=== PATIENT | female | born 1960 | race Caucasian/White ===

== ENCOUNTER 2017-04-27 06:46 | Inpatient (IN) | payer OTHER ==
[2017-04-27] VITALS (20 sets, daily range): BP systolic 124–172; BP diastolic 57–100; PULSE 62–97; RESP 18–20; TEMP 97.1–98.6; O2SAT 18–100
[~2017-04-27] VITALS: Ht 175.3 cm; Wt 59.5 kg
[~2017-04-27 06:46] MED LIST: LISI-360 PO
[2017-04-27] MEDS ORDERED: NITROGLYCERIN 0.4 MG SL 25 TABS/BTL SL STA (06:55)
[2017-04-27] MEDS ORDERED: HEPARIN SODIUM - IV 10,000 UNITS/10 ML VIAL IV STA (06:55)
[2017-04-27] MEDS ORDERED: ASPIRIN 81 MG CHEW TAB PO STA (06:55)
[2017-04-27] MEDS ORDERED: SODIUM CHLOR 0.9% 1000 ML INJ 1,000 ML IV ONE (06:55)
[2017-04-27] MEDS ORDERED: OXYC30TA PO (06:56)
[2017-04-27] MEDS ORDERED: HEPARIN-NS/PF INJ 1,000 ML ONE (06:58)
[2017-04-27] MEDS ORDERED: SODIUM CHLORIDE 0.9% FLUSH 10 ML FLUSH IVF PRN (07:00)
[2017-04-27] MEDS ORDERED: NITROGLYCERIN-D5W 50 MG/250 ML 250 ML IV PRN (07:00)
[2017-04-27 07:11] LABS: I-STAT SODIUM 143 MMOL/L (138-146)
[2017-04-27 07:12] LABS: I-STAT POTASSIUM 3.3 MMOL/L (3.5-4.9)
[2017-04-27 07:13] LABS: BASOPHIL # 0.1 TH/MM3 (0-0.2); BASOPHIL % 1.2 % (0.0-2.0); EOSINOPHIL # 0.5 TH/MM3 (0-0.4); EOSINOPHIL % 8.2 % (0.0-4.0); HEMATOCRIT 39.3 % (35.0-46.0); HEMO FLAGS DIFF FINAL; LYMPH % 34.7 % (9.0-44.0); LYMPHOCYTE # 2.3 TH/MM3 (1.0-4.8); MEAN CELL VOLUME 92.2 FL (80.0-100.0); MEAN CORPUSCULAR HEMOGLOBIN 31.9 PG (27.0-34.0); MEAN CORPUSCULAR HGB CONC 34.6 % (32.0-36.0); MONO % 10.2 % (0.0-8.0); NEUT % 45.7 % (16.0-70.0); PLATELET COUNT 166 TH/MM3 (150-450); RED BLOOD COUNT 4.26 MIL/MM3 (4.00-5.30); RED CELL DISTRIBUTION WIDTH 14.6 % (11.6-17.2); WHITE BLOOD COUNT 6.6 TH/MM3 (4.0-11.0)
[2017-04-27] MEDS ORDERED: HEPARIN-NS/PF INJ 500 ML ONE (07:20)
[2017-04-27] MEDS ORDERED: MIDAZOLAM HCL 2 MG/2 ML VIAL ONE (07:21)
[2017-04-27] MEDS ORDERED: HEPARIN SODIUM - IV 10,000 UNITS/10 ML VIAL ONE (07:23)
--- NOTE | 2017-04-27 07:23 | PD ---
HPI Chief Complaint: Chest Pain Time Seen by Provider: 06:54 Travel History International Travel<30 days: No Contact w/Intl Traveler<30days: No Traveled to known affect area: No History of Present Illness HPI The patient is 57 years old and arrives with retrosternal chest pain which she states is severe. It woke her up from sleep about 30 minutes prior to ER arrival. EMS on scene obtained an EKG revealing ST elevations in the inferior leads with depressions in V2 and V3. Patient received nitroglycerin en route and states that her pain is unchanged. EMS reports diaphoresis. The patient has a history of hypertension and smoking. She reports a family history of coronary artery disease on her father's side with an ID in his 60s. Pain radiates to the back midsternal distribution. No similar prior chest pain events reported. No personal history of coronary artery disease. PFSH Past Medical History Hypertension: Yes ?: Not : 2 Para: 2 Past Surgical History Surgical History: No Previous Surgery Social History Alcohol Use: Yes (rarely) Tobacco Use: Yes (1 /2) Substance Use: No Allergies-Medications (Allergen,Severity, Reaction): Coded Allergies: No Known Allergies (Unverified , 04/27/17) Reported Meds & Prescriptions Reported Meds & Active Scripts Active Reported Oxycodone (Oxycodone HCl) 30 Mg Tab 30 Mg PO Q8H PRN Review of Systems Except as stated in HPI: all other systems reviewed are Neg General / Constitutional: No: Fever Cardiovascular: Positive: Chest Pain or Discomfort, Diaphoresis, No: Syncope Respiratory: Positive: Shortness of Breath Physical Exam Narrative GENERAL: 57-year-old female well-nourished well-developed, moderate distress SKIN: Warm and dry.. Minimal diaphoresis HEAD: Atraumatic. Normocephalic. EYES: Pupils equal and round. No scleral icterus. No injection or drainage. ENT: No nasal bleeding or discharge. Mucous membranes pink and moist. NECK: Trachea midline. No JVD. CARDIOVASCULAR: Regular rate and rhythm. RESPIRATORY: Minimal dyspnea. Breath sounds present bilaterally. GASTROINTESTINAL: Abdomen soft, non-tender, nondistended. Hepatic and splenic margins not palpable. MUSCULOSKELETAL: Extremities without clubbing, cyanosis, or edema. No obvious deformities. NEUROLOGICAL: Awake and alert. No obvious cranial nerve deficits. Motor grossly within normal limits. Five out of 5 muscle strength in the arms and legs. Normal speech. PSYCHIATRIC: Appropriate mood and affect; insight and judgment normal. Data Data Last Documented VS Vital Signs Date Time Temp Pulse Resp B/P (MAP) Pulse Ox O2 Delivery O2 Flow Rate FiO2 04/27/17 06:58 99 Nasal Cannula 2.00 04/27/17 06:56 97.1 65 20 133/89 (104) Vital signs reviewed Orders Orders Troponin I (04/27/17 06:55) Ckmb (Isoenzyme) Profile (04/27/17 06:55) Complete Blood Count With Diff (04/27/17 06:55) I-Stat Profile (04/27/17 06:55) I-Stat Creatinine (04/27/17 06:55) Calcium (04/27/17 06:55) Magnesium (Mg) (04/27/17 06:55) Prothrombin Time / Inr (Pt) (04/27/17 06:55) Act Partial Throm Time (Ptt) (04/27/17 06:55) B-Type Natriuretic Peptide (04/27/17 06:55) Chest, Single Ap (04/27/17 06:55) Electrocardiogram (04/27/17 06:55) Oxygen Administration (04/27/17 06:55) Iv Access Insert/Monitor (04/27/17 06:55) Oximetry (04/27/17 06:55) Sodium Chlor 0.9% 1000 Ml Inj (Ns 1000 M (04/27/17 06:55) Sodium Chloride 0.9% Flush (Ns Flush) (04/27/17 07:00) Aspirin Chew (Aspirin Chew) (04/27/17 06:55) Nitroglycerin Sl (Nitrostat Sl) (04/27/17 06:55) Nitroglycerin-D5w 50 Mg/250 Ml (Nitrogly (04/27/17 07:00) Heparin Inj (Heparin Inj) (04/27/17 06:55) Heparin-Ns/Pf Inj (Heparin-Ns/Pf Inj) (04/27/17 06:58) Cardiac Catheterization (04/27/17 ) Heparin-Ns/Pf Inj (Heparin-Ns/Pf Inj) (04/27/17 07:20) Midazolam Inj (Versed Inj) (04/27/17 07:21) Fentanyl Inj (Fentanyl Inj) (04/27/17 07:21) Heparin Inj (Heparin Inj) (04/27/17 07:23) Morphine Inj (Morphine Inj) (04/27/17 07:25) Bivalirudin Inj (Angiomax Inj) (04/27/17 07:26) Water Sterile For Injection (Sterile Javier (04/27/17 07:26) Nitroglycerin-D5w 50 Mg/250 Ml (Nitrogly (04/27/17 07:29) CKMB (04/27/17 06:57) CKMB% (04/27/17 06:57) Labs Laboratory Tests Test 04/27/17 06:57 White Blood Count 6.6 TH/MM3 Red Blood Count 4.26 MIL/MM3 Hemoglobin 13.6 GM/DL Bedside Hemoglobin 12.9 G/DL Hematocrit 39.3 % Bedside Hematocrit 38.0 % Mean Corpuscular Volume 92.2 FL Mean Corpuscular Hemoglobin 31.9 PG Mean Corpuscular Hemoglobin Concent 34.6 % Red Cell Distribution Width 14.6 % Platelet Count 166 TH/MM3 Mean Platelet Volume 8.9 FL Neutrophils (%) (Auto) 45.7 % Lymphocytes (%) (Auto) 34.7 % Monocytes (%) (Auto) 10.2 % Eosinophils (%) (Auto) 8.2 % Basophils (%) (Auto) 1.2 % Neutrophils # (Auto) 3.0 TH/MM3 Lymphocytes # (Auto) 2.3 TH/MM3 Monocytes # (Auto) 0.7 TH/MM3 Eosinophils # (Auto) 0.5 TH/MM3 Basophils # (Auto) 0.1 TH/MM3 CBC Comment DIFF FINAL Differential Comment Prothrombin Time 11.3 SEC Prothromb Time International Ratio 1.0 RATIO Activated Partial Thromboplast Time 24.6 SEC Bedside Sodium 143 MMOL/L Bedside Potassium 3.3 MMOL/L Bedside Chloride 106 MMOL/L Bedside Blood Urea Nitrogen 12 MG/DL Bedside Creatinine 0.7 MG/DL Bedside Glucose 124 MG/DL Calcium Level 8.4 MG/DL Magnesium Level 2.2 MG/DL Total Creatine Kinase 111 U/L Troponin I LESS THAN 0.02 NG/ML MDM Medical Decision Making Medical Screen Exam Complete: Yes Emergency Medical Condition: Yes Differential Diagnosis NSTEMI, unstable angina, coronary vasospasm, PE, PTX, aortic dissection, pericarditis, myocarditis, endocarditis, PNA, esophageal disease, aneurysm, musculoskeletal etiologies, anxiety, cocaine/sympathomimetic abuse Narrative Course EKG shows ST elevations and II, III and aVF; ST depression in V2-V3; rate 68, sinus; concerning for STEMI CBC & BMP Diagram 04/27/17 06:57 Point of care hemoglobin 12.9 Patient appears to have occlusive coronary disease. STEMI alert activated. Discussed with Dr. Ramirez at [id number]. Heparin started in the ER. Patient will go for stat coronary catheterization. Critical Care Narrative Aggregate critical care time was 20 minutes. Time to perform other separately billable procedures was not included in the critical care time. My time did not include minutes spent treating any other patients simultaneously or on activities that did not directly contribute to the patient's treatment. The services I provided to this patient were to treat and/or prevent clinically significant deterioration that could result in: Cardiopulmonary arrest, permanent disability I provided critical care services requiring my management, as noted below: Chart data review, documentation time, medication orders and management, vital sign assessments/reviewing monitor data, ordering and reviewing lab tests, ordering and interpreting/reviewing x-rays and diagnostic studies, care of the patient and discussion of the patient with the admitting physicians. Diagnosis Primary Impression: STEMI (ST elevation myocardial infarction) Qualified Codes: I21.3 - ST elevation (STEMI) myocardial infarction of unspecified site Admitting Information Admitting Physician Requests: Rajesh Rutledge MD Apr 27, 2017 07:23
[2017-04-27 07:25] LABS: APTT (PATIENT) 24.6 SEC (24.3-30.1); PROTHROMBIN TIME - PATIENT 11.3 SEC (9.8-11.6)
[2017-04-27] MEDS ORDERED: MORPHINE SULFATE 8 MG/ML INJ ONE (07:25)
[2017-04-27] MEDS ORDERED: STERILE WATER FOR INJECTION 10 ML VIAL ONE (07:26)
[2017-04-27] MEDS ORDERED: BIVALIRUDIN 250 MG VIAL ONE (07:26)
[2017-04-27 07:27] LABS: MAGNESIUM 2.2 MG/DL (1.5-2.5)
--- NOTE | 2017-04-27 07:28 | RADRPT ---
EXAM DATE/TIME: 04/27/2017 07:05 [facility] COMPARISON: No previous studies available for comparison. INDICATIONS : Mid sternal to left arm chest pains. MEDICAL HISTORY : None. SURGICAL HISTORY : None. ENCOUNTER: Initial ACUITY: 2 days PAIN SCORE: 10/10 LOCATION: Left chest FINDINGS: A single view of the chest demonstrates the lungs to be symmetrically aerated without evidence of mas s, infiltrate or effusion. The cardiomediastinal contours are unremarkable. Osseous structures are intact. CONCLUSION: No acute disease. Stephon Hansen MD FACR on April 27, 2017 at 7:26 Board Certified Radiologist. This report was verified electronically.
[2017-04-27] MEDS ORDERED: NITROGLYCERIN-D5W 50 MG/250 ML 250 ML ONE (07:29)
[2017-04-27 07:30] LABS: CREATINE KINASE 111 U/L (26-192)
[2017-04-27 07:43] LABS: CKMB 1.6 NG/ML (0.5-3.6)
[2017-04-27] MEDS ORDERED: TICAGRELOR 90 MG TAB PO ONE (08:16)
--- NOTE | 2017-04-27 08:31 | CATHPROC ---
365Scores HIS Report Study Information Study Number Admission Scheduled Start Study Start [id number] Apr 27 2017 6:46AM 04/27/2017 Apr 27 2017 7:03AM [place] [facility] Cardiac Catheterization Admit Source Facility Department Emergency department [facility] - [employer] Physician and Clinical Staff Initial Elliot Davis Skein Mercerizing Machine Operator Rubina Nichole,RN Skein Mercerizing Machine Operatorjohan Crews RN, Adithya Melendrez cathlab, cathlab Recorder Awais Kay RCIS(BS) Scrub Rubina Leonard,RT(R) Procedures Performed Procedure Location (Site) Vessel Name Angiogram LV LV Ventricle Coronary Angiograms LCA Left Coronary Coronary Angiograms RCA Right Coronary Drug Eluting Inflatio OM2 Prox CIRC IVUS OM2 Prox CIRC L Heart Cath PTCA OM2 Prox CIRC Wire insertion Fem Art (right) Femoral Art Equipment Time Hooking Machine Operator Description Size Mfg Part Number Used/Scraped [id number] 07:43 [employer] WIRE, ASAHI PROWATER 180CM 180CM Used *[id number] WIRE, BALANCE MIDDLEWEIGHT [id number] 07:32 [employer] 190CM Used 190CM *[id number] TRANSDUCER, TRUWAVE [id number] 07:06 MOCTEZUMA MARTE * Used W/STOCKCOCK *[id number] 07:47 [employer] BALLOON, 2.5 15MM EMERGE MR 2.5 15MM Used *[id number] 07:40 [employer] WIRE, CHOICE PT 182CM 182CM Used *[id number] *[id number] *[id number] PIGTAIL ANG. 145 INFINITI [id number] CATHETER *[id number] *[id number] 08:14 DAIG/ST. [employer] MEDICAL ANGIOSEAL, FR6 VIP FR 6 Used *[id number] 07:06 MEDLINE INDUSTRIES PACK, CCL CUSTOM * Used *[id number] 07:06 MEDLINE PACER PEN, SKIN DUAL W/ RULER * Used *[id number] BALLOON, 3.5 X 12MM NC [id number] 07:56 MEDTRONIC 12MM Used EUPHORA *[id number] STENT, 3.0 18 RESOLUTE [id number] 07:50 MEDTRONIC 3.0 18 Used INTEGRITY RX *[id number] 07:48 [employer] MEDICAL 30 DEBBY INDEFLATOR Used *[id number] 07:06 [employer] MEDICAL SHEATH, FR6.5 PRELUDE 11CM FR 6.5 038ACT Used *[id number] 07:06 [employer] MEDICAL WIRE, 3MMJ .035 180CM 180CM Used *[id number] 07:06 NAMIC MANIFOLD, 4 PORT * Used *[id number] 07:06 NYCOMED OMNIPAQUE, 350 MG, 100ML 100ML [id number] Used 08:13 NYCOMED OMNIPAQUE, 350 MG, 50ML 50ML [id number] Used [id number] 07:06 [facility] BLANKET,WARM AIR CCL * Used *[id number] CATHETER, [employer] [place] [id number] 08:00 [place] Used IMAGING *[id number] Equipment Model, Serial, Lot Number and Expiration Data Description Model Number Serial Number Lot Number Expiration Date BALLOON, 2.5 15MM EMERGE MR [id number] 10-07-2019 CATHETER, [employer] [place] [id number] 06-19-2018 IMAGING STENT, 3.0 18 RESOLUTE [id number] 11-27-2018 INTEGRITY RX WIRE, CHOICE PT 182CM [id number] 10-30-2018 History: Allergies Allergy Reaction No Known Allergies History: Risk Factors Family History of Hypertension Dyslipidemia Previous ND Previous Heart Failure Premature CAD Yes Yes No No No Prior Valve Prior PCI Prior CABG Surgery No No No Cerebrovascular Peripheral Artery Chronic Lung On Dialysis Diabetes Disease Disease Disease No No No No No History: Symptoms/Diagnosis Selection Items Chest pain History: Stress Tests Stress or Imaging Studies Performed No History: Other Disease Selection Items HTN History: Other Current Smoker Packs a Day Years Used Pack Years Yes 1 30 30 Labs Hgb (g/dl) 11.60-17.00 Not Drawn Creatinine (mg/dl) 0.50-1.30 0.7 K (meq/l) 3.50-5.10 3.3 CPK-MB (ng/ML) 0.50-3.60 Not Drawn Medication Medication Total Dose (Bolus/Oral) Medication Total Dosage/Unit 1% XYLOCAINE 20 mL ANGIOMAX BOLUS 9 mL BRILLINTA 180 mg MORPHINE 8 mg NITROGLYCERIN S/L 350 mcg Medications (Bolus/Oral) Medication Time Given Dosage/Unit Administered By Reason 1% XYLOCAINE 04/27/2017 7:25:57 AM 20 mL Elliot Ramirez 20 mL 1% XYLOCAINE given in lab by Elliot Ramirez in Right Groin via Subcutaneous. Ordered by Elliot Ramirez. MORPHINE 04/27/2017 7:27:51 AM 5 mg Rubina Nichole 5 mg MORPHINE given in lab by Rubina Nichole RN in Left Forearm via Peripheral IV. Ordered by Elliot Ramirez. ANGIOMAX BOLUS 04/27/2017 7:29:42 AM 9 mL Rubina Nichole 9 mL ANGIOMAX BOLUS given in lab by Rubina Nichole RN in Left Antecubital via Peripheral IV. Ordered by Elliot Ramirez. MORPHINE 04/27/2017 7:50:44 AM 3 mg Adithya Crews RN 3 mg MORPHINE given in lab by Adithya Crews RN in Left Forearm via Peripheral IV. Ordered by Christin Ramirez. NITROGLYCERIN S/L 04/27/2017 8:02:32 AM 200 mcg Elliot Ramirez 200 mcg NITROGLYCERIN S/L given in lab by Elliot Ramirez via Intra-arterial. Ordered by Elliot Ramirez. NITROGLYCERIN S/L 04/27/2017 8:08:33 AM 150 mcg Elliot Ramirez 150 mcg NITROGLYCERIN S/L given in lab by Elliot Ramirez via Intra-arterial. Ordered by Elliot Ramirez. BRILLINTA 04/27/2017 8:29:15 AM 180 mg Rubina Nichole 180 mg BRILLINTA given in lab by Rubina Nichole, ERROL in Per mouth via Oral. Ordered by Elliot Ramirez. Medication (Drip) Medication Time Given Dosage/Unit Concentration/Unit Diluent (ml) Solution ANGIOMAX DRIP 04/27/2017 7:30:40 AM 1.75 mg/kg/hr 250 mg 50 NaCl .9 1.75 mg/kg/hr ANGIOMAX DRIP given in lab by Rubina Nichole, ERROL in Left Antecubital via Peripheral IV. Pump/Drip Flow = 21.49 ml/hr using NaCl .9 with a concentration of 250 mg in 50 ml. Ordered by Elliot Ramirez. IV Solutions 04/27/2017 7:16:53 AM 0 mL (IV) 500 NaCl .9 Patient arrived on IV Solutions in Left Forearm via Peripheral IV. Pump/Drip Flow = 20 ml/hr using Na Cl .9. NITROGLYCERIN DRIP 04/27/2017 7:33:30 AM 5 mcg/min 50 mg 250 D5W 5 mcg/min NITROGLYCERIN DRIP given in lab by Adithya Crews RN in Left Antecubital via Peripheral IV. P ump/Drip Flow = 1.5 ml/hr using D5W with a concentration of 50 mg in 250 ml. Ordered by Elliot Ramirez. NITROGLYCERIN DRIP 04/27/2017 7:40:45 AM 10 mcg/min 50 mg 250 D5W 10 mcg/min NITROGLYCERIN DRIP given in lab by Adithya Crews RN in Left Antecubital via Peripheral IV. Pump/Drip Flow = 3 ml/hr using D5W with a concentration of 50 mg in 250 ml. Ordered by Elliot Ramirez. NITROGLYCERIN DRIP 04/27/2017 7:47:12 AM 15 mcg/min 50 mg 250 D5W 15 mcg/min NITROGLYCERIN DRIP given in lab by Adithya Crews RN in Left Antecubital via Peripheral IV. Pump/Drip Flow = 4.5 ml/hr using D5W with a concentration of 50 mg in 250 ml. Ordered by Elliot Ramirez. NITROGLYCERIN DRIP 04/27/2017 7:50:17 AM 0 mcg/min 50 mg 250 D5W 0 mcg/min NITROGLYCERIN DRIP given in lab by Adithya Crews RN in Left Forearm via Peripheral IV. Pump/ Drip Flow = 0 ml/hr using D5W with a concentration of 50 mg in 250 ml. Ordered by Elliot Ramirez. Initial Case Assessment Cardiovascular HR Rhythm NIBP Chest Pain 76 stmei 170/111 0 Edema Present Skin color Skin None Normal Warm Dry Circulatory - Right Pulses Dorsalis Pedis Femoral 2 2 Scale (0,1,2,3,4,d) Circulatory - Left Pulses Dorsalis Pedis Femoral 2 2 Scale (0,1,2,3,4,d) Neurological State Oriented to time-place- Alert Moves all extremities person Respiration - General Respiration Rate SpO2 (%) (B/min) 15 98 Final Case Assessment Cardiovascular HR Rhythm NIBP Chest Pain 86 nsr 135/95 0 Edema Present Skin color Skin None Normal Warm Dry Circulatory - Right Pulses Dorsalis Pedis Femoral 2 2 Scale (0,1,2,3,4,d) Circulatory - Left Pulses Dorsalis Pedis Femoral 2 2 Scale (0,1,2,3,4,d) Neurological State Oriented to time-place- Alert Moves all extremities person Respiration - General Respiration Rate SpO2 (%) (B/min) 15 98 Chronological Log Time Study Chronological Log 7:16:15 MD arrived. 7:16:41 Patient arrived via Bed. 7:16:42 Patient Name, D.O.B, / Armband Verified By R.N. 7:16:42 Consent signed by the physician and the patient and verified by the Autom[employer] staff. 7:16:43 Pre-op and post- op instructions given; patient acknowledges understanding of instructions. 7:16:43 Verbal Stimulation=2 Physical Stimulation=2 Airway=2 Respiration=2 TOTAL=8. (0=absent, 1=li mited, 2=present) 7:16:46 Presedation assessment performed by [employer] RN. 7:16:47 Immediate Presedation assesment performed by physician. 7:16:47 Patient has been NPO for More than 6Hrs. 7:16:48 Skin Breakdown- none per patient 7:16:49 Patient Warmer Placed on the Table. 7:16:50 Disposable Defibrillator Pads Placed On Patient. 7:16:51 Nicholas Prominences Protected 7:16:52 A # 20 IV was noted in the Forearm (left). Grade = 0 7:16:52 A # 20 IV was noted in the Forearm (right). Grade = 0 7:16:53 Patient arrived on IV Solutions in Left Forearm via Peripheral IV. Pump/Drip Flow = 20 ml/h r using NaCl .9. 7:16:55 History and physical on the chart or being dictated. 7:19:00 Bilateral groins prepped with 2% chlorhexidine, and with a 3 min. waiting time. Vitals capture started with the following parameters, Patient=Adult, Interval=5 min, Initial Pre jtopg=528 mmHg, 7:20:42 Deflation Rate=5 mmHg, Cuff placed on Right Arm 7:21:21 HR=74 bpm, MCXM=270/111 mmhg, SpO2=98.0 %, Resp=15 B/min, Pain=8, Nik=10, Wisdom=2 7:22:30 Contrast Scanned 7:22:31 Immediate Presedation assesment performed by physician. Assessment: Initial Case, HR=76 BPM, Rhythm=stmei, FBSJ=058/111 mmhg, Chest Pain=0, Edema=None, Color=Normal, Skin = Warm, Dry Right Pulses: Demetrius Ped=2, Femoral=2 7:22:38 Left Pulses: Demetrius Ped=2, Femoral=2 Neurological: State=Alert, Ox3, VINSON Respiration: Resp=15 B/min, SpO2=98 % 7:23:54 Reference ECG taken 7:24:41 Pressure channel 1 zeroed. 7:24:46 Immediate Presedation assesment performed by physician. Time Out. Correct patient, correct procedure,correct physician, ,power injector not loaded with contrast with surgical 7:25:21 team present. Time Out Concurred by , individual staff in procedure 7::28 Case Start 7::29 Verbal Stimulation=2 Physical Stimulation=2 Airway=2 Respiration=2 TOTAL=8. (0=absent, 1=hilton ited, 2=present) 7:25:57 20 mL 1% XYLOCAINE given in lab by Elliot Ramirez in Right Groin via Subcutaneous. Ordered by Elliot Ramirez. 7:26:22 HR=79 bpm, EISC=266/106 mmhg, SpO2=98.0 %, Resp=25 B/min, Pain=8, Nik=10, Wisdom=2 7:26:54 Access site was Right Femoral Artery. 7:27:03 A WIRE, 3MMJ .035 180CM 180CM was inserted via Fem Art (right). 7:27:10 A SHEATH, FR6.5 PRELUDE 11CM FR 6.5 was advanced into the Fem Art (right) using the Percutan eous technique. A JL 4.0 INFINITI CATHETER FR 6 was advanced over a wire. OMNIPAQUE, 350 MG, 100ML 100ML was use d for 7:27:25 injections. 7:27:51 5 mg MORPHINE given in lab by Rubina Nichole, ERROL in Left Forearm via Peripheral IV. Ordered by Elliot Ramirez. Recorded Pressure: Ao, HR=82, Condition=Condition 1 7:29:05 (Aorta) Ao 181/105/137 7:29:13 The LCA was injected and visualized at various angles. OMNIPAQUE, 350 MG, 100ML 100ML used. 9 mL ANGIOMAX BOLUS given in lab by Rubina Nichole, ERROL in Left Antecubital via Peripheral IV. Or dered by James 7:29:42 Elliot. After removing the current catheter a 3DRC INFINITI CATHETER FR 6 was advanced over a WIRE, 3MMJ .035 180CM 7:30:33 180CM. 1.75 mg/kg/hr ANGIOMAX DRIP given in lab by Rubina Nichole RN in Left Antecubital via Periphera l IV. Pump/Drip 7:30:40 Flow = 21.49 ml/hr using NaCl .9 with a concentration of 250 mg in 50 ml. Ordered by Keanu Ramirez. 7:31:23 HR=83 bpm, QYLR=122/121 mmhg, SpO2=97.0 %, Resp=20 B/min, Pain=8, Nik=10, Wisdom=2 7:31:28 The RCA was injected and visualized at various angles. OMNIPAQUE, 350 MG, 100ML 100ML used. After removing the current catheter a XB 3.5 GUIDE CATHETER FR 6 was advanced over a WIRE, 3MMJ .035 180CM 7:32:21 180CM. 5 mcg/min NITROGLYCERIN DRIP given in lab by Adithya Crews RN in Left Antecubital via Peripheral IV. Pump/Drip Flow 7:33:30 = 1.5 ml/hr using D5W with a concentration of 50 mg in 250 ml. Ordered by Elliot Ramirez. 7:33:58 A WIRE, BALANCE MIDDLEWEIGHT 190CM 190CM was inserted via Fem Art (right). 7:36:22 HR=85 bpm, JWYB=356/115 mmhg, SpO2=98.0 %, Resp=15 B/min, Pain=8, Nik=10, Wisdom=2 7:36:47 Wire removed. Reshaped. 7:38:59 A WIRE, BALANCE MIDDLEWEIGHT 190CM 190CM was inserted via Fem Art (right). 7:40:14 Wire removed 7:40:40 A WIRE, CHOICE PT 182CM 182CM was inserted via Fem Art (right). 10 mcg/min NITROGLYCERIN DRIP given in lab by Adithya Crews RN in Left Antecubital via Peripheral IV. Pump/Drip Flow 7:40:45 = 3 ml/hr using D5W with a concentration of 50 mg in 250 ml. Ordered by Elliot Ramirez. 7:41:23 HR=82 bpm, OUPW=437/106 mmhg, SpO2=96.0 %, Resp=15 B/min, Pain=8, Nik=10, Wisdom=2 7:43:52 A WIRE, ASAHI PROWATER 180CM 180CM was inserted via Fem Art (right). 7:45:50 Interventional wire has crossed the lesion 7:46:22 HR=85 bpm, SUDZ=209/112 mmhg, SpO2=96.0 %, Resp=14 B/min, Pain=8, Nik=10, Wisdom=2 A BALLOON, 2.5 15MM EMERGE MR 2.5 15MM was inserted over WIRE, ASAHI PROWATER 180CM 180CM via th e OM2 7:47:04 Prox. 15 mcg/min NITROGLYCERIN DRIP given in lab by Adithya Crews RN in Left Antecubital via Peripheral IV. Pump/Drip Flow 7:47:12 = 4.5 ml/hr using D5W with a concentration of 50 mg in 250 ml. Ordered by Elliot Ramirez. 7:47:53 Choice PT Wire removed A BALLOON, 2.5 15MM EMERGE MR 2.5 15MM over a WIRE, ASAHI PROWATER 180CM 180CM in the OM2 Prox w as 7:48:06 inflated using a 30 DEBBY INDEFLATOR at 6 debby for 20 sec. 7:49:40 Balloon Removed. 0 mcg/min NITROGLYCERIN DRIP given in lab by Adithya Crews RN in Left Forearm via Peripheral IV. Pump/Drip Flow = 0 7:50:17 ml/hr using D5W with a concentration of 50 mg in 250 ml. Ordered by Elliot Ramirez. 7:50:44 3 mg MORPHINE given in lab by Adithya Crews RN in Left Forearm via Peripheral IV. Ordered by Elliot Ramirez. A STENT, 3.0 18 RESOLUTE INTEGRITY RX 3.0 18 was advanced through a XB 3.5 GUIDE CATHETER FR 6 o cruz a 7:50:59 WIRE, ASAHI PROWATER 180CM 180CM. 7:51:23 HR=92 bpm, KSAN=194/91 mmhg, SpO2=95.0 %, Resp=15 B/min, Pain=6, Nik=10, Wisdom=2 A STENT, 3.0 18 RESOLUTE INTEGRITY RX 3.0 18 was deployed using a 30 DEBBY INDEFLATOR at 12 atmosp heres for 7:51:36 34 seconds in the OM2 Prox. 7:52:28 Delivery device removed A BALLOON, 3.5 X 12MM NC EUPHORA 12MM was inserted over WIRE, ASAHI PROWATER 180CM 180CM via the OM2 7:55:02 Prox. 7:56:14 HR=85 bpm, QVEW=615/104 mmhg, SpO2=92.0 %, Resp=16 B/min, Pain=6, Nik=10, Wisdom=2 A BALLOON, 3.5 X 12MM NC EUPHORA 12MM over a WIRE, ASAHI PROWATER 180CM 180CM in the OM2 Prox wa s 7:56:23 inflated using a 30 DEBBY INDEFLATOR at 14 debby for 17 sec. A BALLOON, 3.5 X 12MM NC EUPHORA 12MM over a WIRE, ASAHI PROWATER 180CM 180CM in the OM2 Prox wa s 7:56:55 inflated using a 30 DEBBY INDEFLATOR at 14 debby for 13 sec. 7:57:13 Balloon Removed. 8:00:52 IVUS machine turned on. 8:01:19 HR=82 bpm, ZWTL=910/95 mmhg, SpO2=93.0 %, Resp=27 B/min, Pain=6, Nik=10, Wisdom=2 8:02:32 200 mcg NITROGLYCERIN S/L given in lab by Elliot Ramirez via Intra-arterial. Ordered by Elliot Smith. 8:03:15 An CATHETER, [employer] [place] IMAGING was advanced through the lesion. Images saved on to IVUS hard drive 8:03:44 IVUS in progress using CATHETER, [employer] [place] IMAGING 8:05:39 IVUS catheter removed 8:06:22 HR=71 bpm, IASY=364/78 mmhg, SpO2=92.0 %, Resp=26 B/min, Pain=6, Nik=10, Wisdom=2 A BALLOON, 3.5 X 12MM NC EUPHORA 12MM was inserted over WIRE, ASAHI PROWATER 180CM 180CM via the OM2 8:06:48 Prox. A BALLOON, 3.5 X 12MM NC EUPHORA 12MM over a WIRE, ASAHI PROWATER 180CM 180CM in the OM2 Prox wa s 8:07:43 inflated using a 30 DEBBY INDEFLATOR at 20 debby for 19 sec. 8:08:33 150 mcg NITROGLYCERIN S/L given in lab by Elliot Ramirez via Intra-arterial. Ordered by Elliot Smith. 8:09:59 Balloon Removed. 8:10:10 Wire removed 8:11:10 A PIGTAIL ANG. 145 INFINITI CATHETER FR 6 was advanced over a wire. contrast was used for in jections. 8:11:19 HR=86 bpm, MVDR=558/77 mmhg, SpO2=95.0 %, Resp=15 B/min, Pain=4, Nik=10, Wisdom=2 Recorded Pressure: LV, HR=73, Condition=Condition 1 8:12:25 (Left Ventricle) LV 132/10/18 8:12:40 The LV was injected at 10 cc/sec for a total of 30. OMNIPAQUE, 350 MG, 50ML 50ML used. Recorded Pressure: LV, Ao, HR=84, Condition=Condition 1 8:13:37 (Left Ventricle) LV 140/14/23, (Aorta) Ao 132/78/103 8:13:54 Catheter was removed 8:14:00 An injection in the Fem Art (right) was made through the SHEATH, FR6.5 PRELUDE 11CM FR 6.5 . 8:14:57 ANGIOSEAL, FR6 VIP FR 6 placement in the Fem Art (right) 8:15:54 Case End Assessment: Final Case, HR=86 BPM, Rhythm=nsr, UNVY=468/95 mmhg, Chest Pain=0, Edema=None, Col or=Normal, Skin = Warm, Dry Right Pulses: Demetrius Ped=2, Femoral=2 8:15:59 Left Pulses: Demetrius Ped=2, Femoral=2 Neurological: State=Alert, Ox3, VINSON Respiration: Resp=15 B/min, SpO2=98 % 8:16:17 Catheter(s) removed without difficulty 8:16:20 Sterile dressing applied to site 8:16:21 No case complications noted. 8:16:21 Cine recording checked. 8:16:23 Bedside Report will be given. 8:16:23 Implantable Device card placed in patient's chart. 8:16:27 Contrast Scanned 8:16:27 Verbal Stimulation=2 Physical Stimulation=2 Airway=2 Respiration=2 TOTAL=8. (0=absent, 1=l imited, 2=present) 8:16:37 A Left Heart Cath was performed. 8:16:51 HR=85 bpm, HRDY=283/95 mmhg, SpO2=97.0 %, Resp=16 B/min, Pain=4, Nik=10, Wisdom=2 8:21:19 HR=83 bpm, IQGH=658/91 mmhg, SpO2=99.0 %, Resp=17 B/min, Pain=3 8:23:04 Patient moved to stretcher 8:23:08 Vitals capture stopped. 8:29:15 180 mg BRILLINTA given in lab by Rubina Nichole, RN in Per mouth via Oral. Ordered by Elliot Gold. End Study - Contrast Media Used In Study Contrast Total Opened (mL) Total Used (mL) Total Wasted (mL) Omnipaque 200 200 0 End Study - Maximum Contrast Load Max Contrast Load (mL) 438.3 End Study - Radiation Exposure Fluoro Time (minutes) 16.6 End Study - Patient Disposition Complications Transferred To Interventional Outcome No Telemetry Bed successful
[2017-04-27] MEDS ORDERED: BIVALIRUDIN INJ 250 MG in SODIUM CHLORIDE 0.9% INJ 50 ML IV SCH (08:34)
[2017-04-27] MEDS: SODIUM CHLOR 0.9% 1000 ML INJ 1,000 ML IV SCH ×2 (08:34→18:34)
[2017-04-27] MEDS ORDERED: ACETAMINOPHEN 325 MG TAB PO PRN (08:45)
[2017-04-27] MEDS ORDERED: MISC INFORMATION XX ONE (08:45)
[2017-04-27] MEDS ORDERED: oxyCODONE/ACETAMINOPHEN 5 MG/325 MG TAB PO PRN (08:45)
[2017-04-27] MEDS ORDERED: POTASSIUM CHLORIDE 20 MEQ CONTROLLED RELEASE TAB PO ONE (08:45)
[2017-04-27] MEDS ORDERED: ONDANSETRON HCL 4 MG/2 ML VIAL IV PUSH PRN (08:45)
[2017-04-27] MEDS ORDERED: BACITRACIN OINT 0.9 GM PKT TOP ONE (08:45)
[2017-04-27] MEDS ORDERED: SODIUM CHLORIDE 0.9% FLUSH 10 ML FLUSH IV FLUSH PRN (08:45)
--- NOTE | 2017-04-27 08:53 | MH ---
cc: JOSE LEROY M.D. DATE OF ADMISSION 04/27/2017 ADMITTING DIAGNOSIS: 1. Acute ST segment elevation myocardial infarction due to occlusion of the major obtuse marginal branch of the circumflex coronary artery. 2. Chronic tobacco abuse 3. History of hypertension CHIEF COMPLAINT 10/10 chest pain HISTORY OF PRESENT ILLNESS This is a 57-year-old woman who called [facility] for a 10/10 chest pain that woke her from sleep 30 minutes prior to ER arrival. She was brought in as a STEMI alert, taken directly to the laboratory assistant. She has a history of hypertension and smoking. She has a family history of coronary artery disease on her father's side with a known TN in his 60's with a pain 10/10 in the midchest radiating to the back. PAST MEDICAL HISTORY Includes, hypertension. PAST SURGICAL HISTORY Negative SOCIAL HISTORY She has two son. She smokes one and a half packs a day, drinks alcohol rarely, denies substance abuse. ALLERGIES None REVIEW OF SYSTEMS Denies any GI bleeding, urinary problems, GI problems, additional review of systems is negative. PHYSICAL EXAMINATION This is a well-developed, well-nourished white female moaning in pain. VITAL SIGNS: Charted. HEENT: Exam unremarkable. NECK: Negative for JVD bruits. CHEST: Clear to auscultation. CARDIAC: S1, S2, S4 regular rate and rhythm. No murmur. ABDOMEN: Soft, nontender. EXTREMITIES: No clubbing, cyanosis or edema. Pulses are intact. EKG shows ST-segment elevation consistent with an acute STEMI. LABORATORY DATA Show a hematocrit 39.3 and platelet count 166,000, white count 6600, potassium 3.3, creatinine is 0.7 and troponin less than 0.02, these are the point of care testing. IMPRESSION Acute ST-segment elevation TN. PLAN Please see laboratory assistant procedure note. The patient has a STEMI of the circumflex artery. We will add teri inhibitors and beta blockers as hemodynamics permit. Anticipated hospital stay is two days. Check lipid values and initiate statin therapy. MD WILLIAM Maynard/MATTHEW 8:32 AM /8:41 AM
[2017-04-27] MEDS ORDERED: ATORVASTATIN 10 MG TAB PO SCH (09:00)
[2017-04-27] MEDS: SODIUM CHLORIDE 0.9% FLUSH 10 ML FLUSH IV FLUSH SCH ×2 (09:00→21:24)
[2017-04-27] MEDS ORDERED: NICOTINE 21 MG/24 HR PATCH T-DERMAL ONE (09:15)
[2017-04-27] MEDS: LISINOPRIL 5 MG TAB PO SCH (09:24)
[2017-04-27] MEDS: ASPIRIN 81 MG CHEW TAB PO SCH (09:25)
[2017-04-27] MEDS: METOPROLOL TARTRATE 25 MG TAB PO SCH ×2 (09:25→21:24)
--- NOTE | 2017-04-27 09:47 | MA ---
cc: JOSE LEROY M.D. DATE 04/27/2017 PROCEDURE PERFORMED Left heart catheterization, left ventriculography, coronary angiography, intravascular ultrasound, balloon angioplasty and stenting of the major obtuse marginal branch of circumflex coronary artery. INDICATIONS FOR THE PROCEDURE This is a 57-year-old woman who came in with an acute STEMI 10/10 pain. DESCRIPTION OF PROCEDURE The patient was brought to the cardiac environmental laboratory technician in a fasting state. The right groin was prepped and draped in a sterile fashion. Using 1% lidocaine for local anesthesia, a 6-1/2 Ethiopian sheath was inserted in the right femoral artery requiring only a single front wall stick. Left coronary angiography was completed using a left four Luis Alberto catheter and a right coronary angiography was completed using a 3DRC catheter. We used an XB 3.5 guiding catheter to engage the left main. Were I to do a repeat, I probably would choose an XB 4 guide. I then tried to wire the circumflex marginal branch. This was difficult because the marginal branch required navigating two opposite 90 degrees bends. I was unsuccessful with a BMW wire. I tried trace floppy unsuccessfully with a Prowater guide and special bands in the wire, was able to get the marginal branch wired and then predilated it with a 2.5 mm balloon. I then stented it with a 3.0 x 18 mm Resolute stent. This was postdilated with a 3.5 x 12 mm NC balloon. I performed intravascular ultrasound and decided to expand the proximal portion of the stent further, so I used the same balloon and went to 20 atmospheres. Angiography demonstrated a good result. The chest pain level was down to 2. There were no complications. Angiography of the right femoral artery was then performed via the sheath followed by an uncomplicated Angio-Seal placement. Hemostasis was achieved. Prior to the groin closure, I performed an LV gram and pulled back with a pigtail catheter. FINDINGS Hemodynamics. Left ventricular pressure was 140/14 with an end-diastolic pressure elevated at 23. Aortic pressure is 132/78 with mean of 103. Left ventriculography. Left ventriculography shows moderate apical hypokinesis. Ejection fraction is 40-45% probably closer to 40%. Coronary angiography. The left main coronary artery tapers distally about 10%. The left anterior descending artery has diffuse proximal and mid disease which is eccentric and may be as much as 40-50% proximally and 20-30% in the mid segment. There is a ramus intermediate branch which has 40-50% smooth ostial and proximal narrowing. The circumflex artery gives off a major obtuse marginal branch which is completely occluded. This is a very large branch which goes all the way to the apex. There is a small distal circumflex vessel. The right coronary artery is dominant and has diffuse 35% proximal and mid disease. RESULTS OF STENTING Following stenting of the major obtuse marginal branch, the total occlusion has been reduced to 0% without evidence of thrombus or dissection. There is about a 20% stenosis distal to where I stented that did not need stenting. There is SONAL-III flow at the end of the procedure. Looking carefully at the stent, it probably does chcf the distal circumflex vessel, but that vessel is very small CONCLUSIONS 1. Mild to moderately impaired LV function. 2. Elevated left ventricular end-diastolic pressure. 3. Three-vessel coronary artery disease which is mild in the right coronary artery, moderate in the LAD and severe in the circumflex vessel occlusion of the obtuse marginal branch. 4. Successful stenting of the obtuse marginal branch using a drug-eluting stent. RECOMMENDATIONS Aspirin and Brilinta and at use [place] inhibitor, beta angélica as hemodynamics permit. Check lipid values and start statin therapy. Anticipated hospital stay is two days. MD WILLIAM Maynard/MATTHEW /8:26 AM /9:28 AM
--- NOTE | 2017-04-27 10:53 | HHI.HP ---
[facility] Unknown Admission Diagnosis STEMI Diagnoses: (1) Tobacco abuse (2) Hypertension Diagnosis: Principal (3) Hyperlipidemia Diagnosis: Secondary (4) STEMI (ST elevation myocardial infarction) Diagnosis: Principal Chief Complaint: Chest pain Travel History International Travel<30 Days: No Contact w/Intl Traveler <30 Da: No Traveled to Known Affected Are: No History of Present Illness Patient is a 57-year-old female. Initially presented with BY EVAC with 10 out of 10 chest pain that woke her from sleep 30 minutes prior to arrival in emergency department. Patient was brought in as STEMI alert. Patient went directly to the [facility] [employer]. Had stents placed to left circumflex drug-eluting She has history of hypertension and tobacco abuse Family history is positive for MIs and coronary artery disease She had pain And 10 the Mid Chest Radiating into Her Back Review of Systems Constitutional: DENIES: Diaphoretic episodes, Fatigue, Fever, Weight gain, Weight loss, Chills, Dizziness Endocrine: DENIES: Abnorml menstrual pattern, Heat/cold intolerance Eyes: DENIES: Blurred vision, Diplopia, Eye inflammation Ears, nose, mouth, throat: DENIES: Tinnitus, Hearing loss, Vertigo, Nasal discharge Respiratory: COMPLAINS OF: Cough, DENIES: Apneas, Snoring, Wheezing, Hemoptysis , Sputum production Cardiovascular: COMPLAINS OF: Chest pain, DENIES: Palpitations, Syncope, Dyspnea on Exertion, PND, Lower Extremity Edema Gastrointestinal: DENIES: Abdominal pain, Black stools, Bloody stools Genitourinary: DENIES: Abnormal vaginal bleeding, Dysmenorrhea Musculoskeletal: DENIES: Joint pain, Muscle aches Integumentary: DENIES: Abnormal pigmentation, Pruritus Hematologic/lymphatic: DENIES: Bruising, Lymphadenopathy Immunologic/allergic: DENIES: Eczema, Urticaria Neurologic: DENIES: Abnormal gait, Headache Psychiatric: DENIES: Anxiety, Confusion Past Family Social History Past Medical History Hypertension tobacco abuse Past Surgical History Denies Reported Medications Reported Meds & Active Scripts Active Reported Oxycodone (Oxycodone HCl) 30 Mg Tab 30 Mg PO Q8H PRN Allergies: Coded Allergies: No Known Allergies (Unverified , 04/27/17) Active Ordered Medications Current Medications Sodium Chloride 1,000 ml @ 0 mls/hr Q0M ONCE IV ; Start 04/27/17 at 06:55; Stop 04/27/17 at 06:58; Status DC Sodium Chloride (NS Flush) 2 ml UNSCH PRN IVF FLUSH AFTER USING IV ACCESS; Start 04/27/17 at 07:00; Stop 04/27/17 at 08:40; Status DC Aspirin (Aspirin Chew) 324 mg NOW STAT PO ; Start 04/27/17 at 06:55; Stop at 06:58; Status DC Nitroglycerin (Nitrostat Sl) 0.4 mg NOW STAT SL ; Start 04/27/17 at 06:55; Stop 04/27/17 at 06:58; Status DC Nitroglycerin/ Dextrose 250 ml @ 3 mls/hr TITRATE PRN IV for angina or ST elevation; Start 04/27/17 at 07:00 Heparin Sodium (Porcine) (Heparin Inj) 4,000 units NOW STAT IV ; Start 04/27/17 at 06:55; Stop 04/27/17 at 06:58; Status DC Heparin Sodium/ Sodium Chloride 1,000 ml @ As Directed STK-MED ONCE .ROUTE ; Start 04/27/17 at 06:58; Stop 04/27/17 at 06:59; Status DC Heparin Sodium/ Sodium Chloride 500 ml @ As Directed STK-MED ONCE .ROUTE ; Start 04/27/17 at 07:20; Stop 04/27/17 at 07:21; Status DC Midazolam HCl (Versed Inj) 2 mg STK-MED ONCE .ROUTE ; Start 04/27/17 at 07:21; Stop 04/27/17 at 07:22; Status DC Fentanyl Citrate (fentaNYL INJ) 100 mcg STK-MED ONCE .ROUTE ; Start 04/27/17 at 07:21; Stop 04/27/17 at 07:22; Status DC Heparin Sodium (Porcine) (Heparin Inj) 10,000 units STK-MED ONCE .ROUTE ; Start 04/27/17 at 07:23; Stop 04/27/17 at 07:24; Status DC Morphine Sulfate (Morphine Inj) 8 mg STK-MED ONCE .ROUTE ; Start 04/27/17 at 07: 25; Stop 04/27/17 at 07:26; Status DC Bivalirudin (Angiomax Inj) 250 mg STK-MED ONCE .ROUTE ; Start 04/27/17 at 07:26; Stop 04/27/17 at 07:27; Status DC Sterile Water (Sterile Water For Injection) 10 ml STK-MED ONCE .ROUTE ; Start at 07:26; Stop 04/27/17 at 07:27; Status DC Nitroglycerin/ Dextrose 250 ml @ As Directed STK-MED ONCE .ROUTE ; Start at 07:29; Stop 04/27/17 at 07:30; Status DC Ticagrelor (Brilinta) 180 mg STK-MED ONCE PO ; Start 04/27/17 at 08:16; Stop 04/27 at 08:17; Status DC Sodium Chloride 1,000 ml @ 100 mls/hr Q10H IV ; Start 04/27/17 at 08:34; Stop at 20:33 Sodium Chloride (NS Flush) 2 ml UNSCH PRN IV FLUSH FLUSH AFTER USING IV ACCESS ; Start 04/27/17 at 08:45 Sodium Chloride (NS Flush) 2 ml BID IV FLUSH Last administered on 04/27/17 09: 00; Start 04/27/17 at 09:00 Acetaminophen (Tylenol) 325 mg Q4H PRN PO PAIN SCALE 1 TO 2; Start 04/27/17 at 08:45 Oxycodone/ Acetaminophen (Percocet 5-325 Mg) 1 tab Q4H PRN PO PAIN SCALE 3 TO 10; Start 04/27/17 at 08:45 Aspirin (Aspirin Chew) 81 mg DAILY PO Last administered on 04/27/17 09:25; Start 04/27/17 at 09:00 Ticagrelor (Brilinta) 90 mg BID PO ; Start 04/27/17 at 21:00 Bivalirudin 250 mg/Sodium Chloride 50 ml @ 0 mls/hr Q0M IV ; Start 04/27/17 at 08 :34; Stop 04/27/17 at 12:33 Miscellaneous Information 1 ONCE ONCE XX ; Start 04/27/17 at 08:45; Stop at 08:46; Status DC Ondansetron HCl (Zofran Inj) 4 mg Q4H PRN IV PUSH NAUSEA; Start 04/27/17 at 08: 45 Bacitracin (Bacitracin Oint Packet) 0.9 gm ONCE ONCE TOP ; Start 04/27/17 at 08: 45; Stop 04/27/17 at 08:46; Status DC Metoprolol Tartrate (Lopressor) 12.5 mg BID PO Last administered on 04/27/17 09 :25; Start 04/27/17 at 09:00 Lisinopril (Prinivil) 5 mg DAILY PO Last administered on 04/27/17 09:24; Start 04/27/17 at 09:00 Atorvastatin Calcium (Lipitor) 40 mg DAILY PO Last administered on 04/27/17 09: 24; Start 04/27/17 at 09:00; Stop 04/27/17 at 09:54; Status DC Potassium Chloride (KCl) 20 meq ONCE ONCE PO Last administered on 04/27/17 09: 24; Start 04/27/17 at 08:45; Stop 04/27/17 at 08:46; Status DC Oxycodone HCl (Roxicodone) 30 mg Q8H PRN PO PAIN 1-10; Start 04/27/17 at 09:15 Nicotine (Habitrol 21 Mg Patch.24 Hr) 1 patch ONCE ONCE T-DERMAL ; Start at 09:15; Stop 04/27/17 at 09:22; Status DC Nicotine (Habitrol 21 Mg Patch.24 Hr) 1 patch DAILY T-DERMAL ; Start 04/28/17 at 09:00 Miscellaneous Information 1 DAILY T-DERMAL ; Start 04/28/17 at 09:00 Miscellaneous Information 1 HS T-DERMAL ; Start 04/27/17 at 21:00; Status Cancel Atorvastatin Calcium (Lipitor) 40 mg DAILY PO ; Start 04/28/17 at 09:00 Family History Positive for coronary disease and heart disease in her family Social History She has 2 sons. She smokes one half packs a day Works at a bar as a stenotype machine operator Rare alcohol probably once a month denies any illicits Physical Exam Vital Signs Vital Signs Date Time Temp Pulse Resp B/P (MAP) Pulse Ox O2 Delivery O2 Flow Rate FiO2 04/27/17 07:13 04/27/17 06:58 99 Nasal Cannula 2.00 04/27/17 06:56 97.1 65 20 133/89 (104) 99 Nasal Cannula 04/27/17 06:48 68 18 172/95 (120) 98 04/27/17 06:45 100 Nasal Cannula 4.00 04/27/17 06:45 100 4.00 Physical Exam GENERAL: This is a well-nourished, well-developed patient, in no apparent distress. SKIN: No rashes, ecchymoses or lesions. Cool and dry. HEAD: Atraumatic. Normocephalic. No temporal or scalp tenderness. EYES: Pupils equal round and reactive. Extraocular motions intact. No scleral icterus. No injection or drainage. ENT: Nose without bleeding, purulent drainage or septal hematoma. Throat without erythema, tonsillar hypertrophy or exudate. Uvula midline. Airway patent. Tongue is midline NECK: Trachea midline. No JVD or lymphadenopathy. Supple, nontender, no meningeal signs. CARDIOVASCULAR: Regular rate and rhythm without murmurs, gallops, or rubs. S1 and S2 no S3 or S4 RESPIRATORY: Clear to auscultation. Breath sounds equal bilaterally. No wheezes , rales, or rhonchi. GASTROINTESTINAL: Abdomen soft, non-tender, nondistended. No hepato-splenomegaly , or palpable masses. No guarding. MUSCULOSKELETAL: Extremities without clubbing, cyanosis, or edema. No joint tenderness, effusion, or edema noted. No calf tenderness. Negative Homans sign bilaterally. NEUROLOGICAL: Awake and alert. Cranial nerves II through XII intact. Motor and sensory grossly within normal limits. Five out of 5 muscle strength in all muscle groups. Normal speech. Insight and judgment is good mood and behaviors appropriate Laboratory Laboratory Tests Test 04/27/17 06:57 White Blood Count 6.6 Red Blood Count 4.26 Hemoglobin 13.6 Bedside Hemoglobin 12.9 Hematocrit 39.3 Bedside Hematocrit 38.0 Mean Corpuscular Volume 92.2 Mean Corpuscular Hemoglobin 31.9 Mean Corpuscular Hemoglobin Concent 34.6 Red Cell Distribution Width 14.6 Platelet Count 166 Mean Platelet Volume 8.9 Neutrophils (%) (Auto) 45.7 Lymphocytes (%) (Auto) 34.7 Monocytes (%) (Auto) 10.2 Eosinophils (%) (Auto) 8.2 Basophils (%) (Auto) 1.2 Neutrophils # (Auto) 3.0 Lymphocytes # (Auto) 2.3 Monocytes # (Auto) 0.7 Eosinophils # (Auto) 0.5 Basophils # (Auto) 0.1 CBC Comment DIFF FINAL Differential Comment Prothrombin Time 11.3 Prothromb Time International Ratio 1.0 Activated Partial Thromboplast Time 24.6 Bedside Sodium 143 Bedside Potassium 3.3 Bedside Chloride 106 Bedside Blood Urea Nitrogen 12 Bedside Creatinine 0.7 Bedside Glucose 124 Calcium Level 8.4 Magnesium Level 2.2 Total Creatine Kinase 111 Creatine Kinase MB 1.6 Troponin I LESS THAN 0.02 B-Type Natriuretic Peptide 17 Result Diagram: 04/27/17 0657 Caprini VTE Risk Assessment Caprini VTE Risk Assessment: Mod/High Risk (score >= 2) Caprini Risk Assessment Model Point Value = 1 Point Value = 2 Point Value = 3 Point Value = 5 Age 41-60 Minor surgery BMI > 25 kg/m2 Swollen legs Varicose veins or History of unexplained or recurrent spontaneous Oral contraceptives or hormone replacement Sepsis (< 1 month) Serious lung disease, including pneumonia (< 1 month) Abnormal pulmonary function Acute myocardial infarction Congestive heart failure (< 1 month) History of inflammatory bowel disease Medical patient at bed rest Age 61-74 Arthroscopic surgery Major open surgery (> 45 min) Laparoscopic surgery (> 45 min) Malignancy Confined to bed (> 72 hours) Immobilizing plaster cast Central venous access Age >= 75 History of VTE Family history of VTE Factor V Leiden Prothrombin 53586H Lupus anticoagulant Anticardiolipin antibodies Elevated serum homocysteine Heparin-induced thrombocytopenia Other congenital or acquired thrombophilia Stroke (< 1 month) Elective arthroplasty Hip, pelvis, or leg fracture Acute spinal cord injury (< 1 month) Prophylaxis Regimen Total Risk Factor Score Risk Level Prophylaxis Regimen 0-1 Low Early ambulation 2 Moderate Order ONE of the following: *Sequential Compression Device (SCD) *Heparin 5000 units SQ BID 3-4 Higher Order ONE of the following medications: *Heparin 5000 units SQ TID *Enoxaparin/Lovenox 40 mg SQ daily (WT < 150 kg, CrCl > 30 mL/min) *Enoxaparin/Lovenox 30 mg SQ daily (WT < 150 kg, CrCl > 10-29 mL/min) *Enoxaparin/Lovenox 30 mg SQ BID (WT < 150 kg, CrCl > 30 mL/min) AND/OR *Sequential Compression Device (SCD) 5 or more Highest Order ONE of the following medications: *Heparin 5000 units SQ TID (Preferred with Epidurals) *Enoxaparin/Lovenox 40 mg SQ daily (WT < 150 kg, CrCl > 30 mL/min) *Enoxaparin/Lovenox 30 mg SQ daily (WT < 150 kg, CrCl > 10-29 mL/min) *Enoxaparin/Lovenox 30 mg SQ BID (WT < 150 kg, CrCl > 30 mL/min) AND *Sequential Compression Device (SCD) Assessment and Plan Problem List: (1) Hypertension ICD Code: I10 - Essential (primary) hypertension (2) Tobacco abuse ICD Code: Z72.0 - Tobacco use (3) Hyperlipidemia ICD Code: E78.5 - Hyperlipidemia, unspecified (4) STEMI (ST elevation myocardial infarction) ICD Code: I21.3 - ST elevation (STEMI) myocardial infarction of unspecified site Status: Acute Assessment and Plan Acute ST elevation CT involving the circumflex artery Had drug-eluting stent placed to the left circumflex artery Tobacco abuse recommend smoking cessation Hypertension start medications. Uncontrolled still Hyperlipidemia suspected started on statin We'll check a TSH free T4 and a hemoglobin A1c as well as a.m. labs monitor throughout the admission thank you Fabiana patch Pain control A.m. labs Monitor renal functions Code Status Full code Discussed Condition With Discussed with cardiology patient and RN Physician Certification 2 Midnight Certification Type: Admission for Inpatient Services Order for Inpatient Services The services are ordered in accordance with Medicare regulations or non- Medicare payer requirements, as applicable. In the case of services not specified as inpatient-only, they are appropriately provided as inpatient services in accordance with the 2-midnight benchmark. Estimated LOS (days): 2 2 days is the estimated time the patient will need to remain in the hospital, assuming treatment plan goals are met and no additional complications. Post-Hospital Plan: Home Problem Qualifiers (1) STEMI (ST elevation myocardial infarction): Qualified Codes: I21.3 - ST elevation (STEMI) myocardial infarction of unspecified site Stephon Jeffers DO Apr 27, 2017 10:53
[2017-04-27] MEDS ORDERED: IOHEXOL 350 MG/ML 100 ML BTL (for Cath Lab) OTHER ONE (11:06)
--- NOTE | 2017-04-27 11:20 | EKG ---
Date Performed: 04/27/2017 Time Performed: 06:48:02 PTAGE: 57 years EKG: Sinus rhythm INFERIOR ST ELEVATION WITH RECIPROCAL CHANGES, CONSIDER ACUTE INJURY PATTERN NO PREVIOUS TRACING DOCTOR: Antolin Montaño Interpretating Date/Time 04/27/2017 11:19:20
[2017-04-27] MEDS ORDERED: REMOVE OLD NICODERM (NICOTINE) PATCH T-DERMAL SCH (21:00)
[2017-04-27] MEDS: TICAGRELOR 90 MG TAB PO SCH (21:24)
[2017-04-28] VITALS (26 sets, daily range): BP systolic 97–138; BP diastolic 63–89; PULSE 62–96; RESP 16–18; TEMP 97–98.8; O2SAT 95–97
[2017-04-28 05:59] LABS: AUTOMATED NEUTROPHIL # 4.6 TH/MM3 (1.8-7.7); BASOPHIL # 0.2 TH/MM3 (0-0.2); BASOPHIL % 2.7 % (0.0-2.0); EOSINOPHIL # 0.2 TH/MM3 (0-0.4); EOSINOPHIL % 2.5 % (0.0-4.0); HEMATOCRIT 43.5 % (35.0-46.0); HEMO FLAGS DIFF FINAL; LYMPH % 18.9 % (9.0-44.0); LYMPHOCYTE # 1.3 TH/MM3 (1.0-4.8); MEAN CELL VOLUME 92.1 FL (80.0-100.0); MEAN CORPUSCULAR HEMOGLOBIN 31.3 PG (27.0-34.0); MONO % 7.6 % (0.0-8.0); NEUT % 68.3 % (16.0-70.0); PLATELET COUNT 184 TH/MM3 (150-450); RED BLOOD COUNT 4.73 MIL/MM3 (4.00-5.30); RED CELL DISTRIBUTION WIDTH 14.7 % (11.6-17.2); WHITE BLOOD COUNT 6.7 TH/MM3 (4.0-11.0)
[2017-04-28 06:22] LABS: ANION GAP 8 MEQ/L (5-15); AST (GOT) 222 U/L (15-37); BICARBONATE 26.7 MEQ/L (21.0-32.0); BLOOD UREA NITROGEN 8 MG/DL (7-18); CHLORIDE 106 MEQ/L (98-107); GLOMERULAR FILTRATION RATE 81 ML/MIN (>89); POTASSIUM 3.6 MEQ/L (3.5-5.1); SODIUM (NA) 141 MEQ/L (136-145)
[2017-04-28 06:23] LABS: ALT (GPT) 47 U/L (10-53)
[2017-04-28 06:38] LABS: ALKALINE PHOSPHATASE 98 U/L (45-117); CREATINE KINASE 1602 U/L (26-192); FREE T4 1.09 NG/DL (0.76-1.46); HDL CHOLESTEROL 50.6 MG/DL (40.0-60.0); LDL CHOLESTEROL 95 MG/DL (0-99); TOTAL BILIRUBIN ADULT 0.4 MG/DL (0.2-1.0)
[2017-04-28 06:50] LABS: CKMB 94.4 NG/ML (0.5-3.6)
--- NOTE | 2017-04-28 08:53 | HHI.PR ---
Subjective Remarks Patient is a 57-year-old female. Initially presented with BY EVAC with 10 out of 10 chest pain that woke her from sleep 30 minutes prior to arrival in emergency department. Patient was brought in as STEMI alert. Patient went directly to the Rehabilitation Tech. Had stents placed to left circumflex drug-eluting She has history of hypertension and tobacco abuse Family history is positive for MIs and coronary artery disease She had pain And 10 the Mid Chest Radiating into Her Back 8-9 COMPLAINS OF SOME SORE THROAT, NO NAUSEA, NO VOMITING AND SOME GERD PPI DW PATIENT AND RN NOT CLEARED BY CARDIO YET Objective Vitals Vital Signs Date Time Temp Pulse Resp B/P (MAP) Pulse Ox O2 Delivery O2 Flow Rate FiO2 04/28/17 07:30 98.4 80 16 117/84 (95) 95 04/28/17 06:16 83 04/28/17 05:51 84 04/28/17 04:55 84 04/28/17 03:33 71 04/28/17 03:10 98.3 81 18 129/81 (97) 95 04/28/17 02:34 78 04/28/17 01:07 74 04/28/17 00:03 62 04/27/17 23:15 82 04/27/17 23:15 98.5 75 20 134/57 (82) 97 04/27/17 22:00 74 04/27/17 21:00 86 04/27/17 20:15 98.6 62 18 132/66 (88) 98 04/27/17 20:00 76 04/27/17 19:00 87 04/27/17 16:01 74 04/27/17 15:30 98.2 77 18 124/83 (97) 98 04/27/17 15:00 73 04/27/17 14:00 70 04/27/17 13:00 94 04/27/17 12:00 84 04/27/17 11:45 98.1 91 18 133/92 (106) 95 04/27/17 11:00 97 04/27/17 10:00 94 04/27/17 09:01 97.4 80 18 149/100 (116) 97 04/27/17 09:00 88 I/O 04/27/17 04/27/17 04/27/17 04/28/17 04/28/17 04/28/17 06:59 14:59 22:59 06:59 14:59 22:59 Intake Total 480 ml 460 ml Output Total 2050 ml Balance -1570 ml 460 ml Intake Oral 480 ml 460 ml Output Urine Total 2050 ml # Voids 4 2 # Bowel Movements 0 Result Diagram: 04/28/17 0513 04/28/17 0513 Other Results Laboratory Tests Test 04/27/17 06:57 04/28/17 05:13 White Blood Count 6.6 TH/MM3 6.7 TH/MM3 Red Blood Count 4.26 MIL/MM3 4.73 MIL/MM3 Hemoglobin 13.6 GM/DL 14.8 GM/DL Bedside Hemoglobin 12.9 G/DL Hematocrit 39.3 % 43.5 % Bedside Hematocrit 38.0 % Mean Corpuscular Volume 92.2 FL 92.1 FL Mean Corpuscular Hemoglobin 31.9 PG 31.3 PG Mean Corpuscular Hemoglobin Concent 34.6 % 34.0 % Red Cell Distribution Width 14.6 % 14.7 % Platelet Count 166 TH/MM3 184 TH/MM3 Mean Platelet Volume 8.9 FL 9.1 FL Neutrophils (%) (Auto) 45.7 % 68.3 % Lymphocytes (%) (Auto) 34.7 % 18.9 % Monocytes (%) (Auto) 10.2 % 7.6 % Eosinophils (%) (Auto) 8.2 % 2.5 % Basophils (%) (Auto) 1.2 % 2.7 % Neutrophils # (Auto) 3.0 TH/MM3 4.6 TH/MM3 Lymphocytes # (Auto) 2.3 TH/MM3 1.3 TH/MM3 Monocytes # (Auto) 0.7 TH/MM3 0.5 TH/MM3 Eosinophils # (Auto) 0.5 TH/MM3 0.2 TH/MM3 Basophils # (Auto) 0.1 TH/MM3 0.2 TH/MM3 CBC Comment DIFF FINAL DIFF FINAL Differential Comment Prothrombin Time 11.3 SEC Prothromb Time International Ratio 1.0 RATIO Activated Partial Thromboplast Time 24.6 SEC Bedside Sodium 143 MMOL/L Bedside Potassium 3.3 MMOL/L Bedside Chloride 106 MMOL/L Bedside Blood Urea Nitrogen 12 MG/DL Bedside Creatinine 0.7 MG/DL Bedside Glucose 124 MG/DL Calcium Level 8.4 MG/DL 8.7 MG/DL Magnesium Level 2.2 MG/DL 2.0 MG/DL Total Creatine Kinase 111 U/L 1602 U/L Creatine Kinase MB 1.6 NG/ML 94.4 NG/ML Troponin I LESS THAN 0.02 NG/ML B-Type Natriuretic Peptide 17 PG/ML Blood Urea Nitrogen 8 MG/DL Creatinine 0.74 MG/DL Random Glucose 91 MG/DL Total Protein 7.4 GM/DL Albumin 3.6 GM/DL Phosphorus Level 3.1 MG/DL Alkaline Phosphatase 98 U/L Aspartate Amino Transf (AST/SGOT) 222 U/L Alanine Aminotransferase (ALT/SGPT) 47 U/L Total Bilirubin 0.4 MG/DL Sodium Level 141 MEQ/L Potassium Level 3.6 MEQ/L Chloride Level 106 MEQ/L Carbon Dioxide Level 26.7 MEQ/L Anion Gap 8 MEQ/L Estimat Glomerular Filtration Rate 81 ML/MIN Creatine Kinase MB % 5.9 % Triglycerides Level 94 MG/DL Cholesterol Level 164 MG/DL LDL Cholesterol 95 MG/DL HDL Cholesterol 50.6 MG/DL Cholesterol/HDL Ratio 3.24 RATIO Free Thyroxine 1.09 NG/DL Thyroid Stimulating Hormone 3rd Gen 0.837 uIU/ML Imaging Last Impressions Chest X-Ray 04/27/17 0655 Signed Impressions: Service Date/Time: Thursday, April 27, 2017 07:05 - CONCLUSION: No acute disease. Stephon Hansen MD FACR Objective Remarks GENERAL: AWAKE ALERT AND ORIENTED x3 SKIN: Warm and dry.NO RASHES HEAD: Atraumatic. Normocephalic. EYES: Pupils equal and round. No scleral icterus. No injection or drainage. EOMI ENT: No nasal bleeding or discharge. Mucous membranes pink and moist.TONGUE MIDLINE NECK: Trachea midline. No JVD. SUPPLE CARDIOVASCULAR: Regular rate and rhythm. S1, S2 NO S3 OR S4 NO HEAVE OR THRILL RESPIRATORY: No accessory muscle use. Clear to auscultation. Breath sounds equal bilaterally. GASTROINTESTINAL: Abdomen soft, non-tender, nondistended. Hepatic and splenic margins not palpable. MUSCULOSKELETAL: Extremities without clubbing, cyanosis, or edema. No obvious deformities. NEUROLOGICAL: Awake and alert. No obvious cranial nerve deficits. Motor grossly within normal limits. Five out of 5 muscle strength in the arms and legs. Normal speech. PSYCHIATRIC: Appropriate mood and affect; insight and judgment normal. Procedures JOSE LEROY M.D. DATE 04/27/2017 PROCEDURE PERFORMED Left heart catheterization, left ventriculography, coronary angiography, intravascular ultrasound, balloon angioplasty and stenting of the major obtuse marginal branch of circumflex coronary artery. RESULTS OF STENTING Following stenting of the major obtuse marginal branch, the total occlusion has been reduced to 0% without evidence of thrombus or dissection. There is about a 20% stenosis distal to where I stented that did not need stenting. There is SONAL-III flow at the end of the procedure. Looking carefully at the stent, it probably does longterm the distal circumflex vessel, but that vessel is very small CONCLUSIONS 1. Mild to moderately impaired LV function. 2. Elevated left ventricular end-diastolic pressure. 3. Three-vessel coronary artery disease which is mild in the right coronary artery, moderate in the LAD and severe in the circumflex vessel occlusion of the obtuse marginal branch. 4. Successful stenting of the obtuse marginal branch using a drug-eluting stent. RECOMMENDATIONS Aspirin and Brilinta and at use [place] inhibitor, beta angélica as hemodynamics permit. Check lipid values and start statin therapy. Anticipated hospital stay is two days. Medications and IVs Current Medications Sodium Chloride 1,000 ml @ 0 mls/hr Q0M ONCE IV ; Start 04/27/17 at 06:55; Stop 04/27/17 at 06:58; Status DC Sodium Chloride (NS Flush) 2 ml UNSCH PRN IVF FLUSH AFTER USING IV ACCESS; Start 04/27/17 at 07:00; Stop 04/27/17 at 08:40; Status DC Aspirin (Aspirin Chew) 324 mg NOW STAT PO ; Start 04/27/17 at 06:55; Stop at 06:58; Status DC Nitroglycerin (Nitrostat Sl) 0.4 mg NOW STAT SL ; Start 04/27/17 at 06:55; Stop 04/27/17 at 06:58; Status DC Nitroglycerin/ Dextrose 250 ml @ 3 mls/hr TITRATE PRN IV for angina or ST elevation; Start 04/27/17 at 07:00 Heparin Sodium (Porcine) (Heparin Inj) 4,000 units NOW STAT IV ; Start 04/27/17 at 06:55; Stop 04/27/17 at 06:58; Status DC Heparin Sodium/ Sodium Chloride 1,000 ml @ As Directed STK-MED ONCE .ROUTE ; Start 04/27/17 at 06:58; Stop 04/27/17 at 06:59; Status DC Heparin Sodium/ Sodium Chloride 500 ml @ As Directed STK-MED ONCE .ROUTE Last administered on 04/27/17 07:20; Start 04/27/17 at 07:20; Stop 04/27/17 at 07:21; Status DC Midazolam HCl (Versed Inj) 2 mg STK-MED ONCE .ROUTE ; Start 04/27/17 at 07:21; Stop 04/27/17 at 07:22; Status DC Fentanyl Citrate (fentaNYL INJ) 100 mcg STK-MED ONCE .ROUTE ; Start 04/27/17 at 07:21; Stop 04/27/17 at 07:22; Status DC Heparin Sodium (Porcine) (Heparin Inj) 10,000 units STK-MED ONCE .ROUTE ; Start 04/27/17 at 07:23; Stop 04/27/17 at 07:24; Status DC Morphine Sulfate (Morphine Inj) 8 mg STK-MED ONCE .ROUTE Last administered on 07:27; Start 04/27/17 at 07:25; Stop 04/27/17 at 07:26; Status DC Bivalirudin (Angiomax Inj) 250 mg STK-MED ONCE .ROUTE Last administered on 07:29; Start 04/27/17 at 07:26; Stop 04/27/17 at 07:27; Status DC Sterile Water (Sterile Water For Injection) 10 ml STK-MED ONCE .ROUTE Last administered on 04/27/17 07:30; Start 04/27/17 at 07:26; Stop 04/27/17 at 07:27; Status DC Nitroglycerin/ Dextrose 250 ml @ As Directed STK-MED ONCE .ROUTE Last administered on 04/27/17 07:29; Start 04/27/17 at 07:29; Stop 04/27/17 at 07:30; Status DC Ticagrelor (Brilinta) 180 mg STK-MED ONCE PO Last administered on 04/27/17 08: 15; Start 04/27/17 at 08:16; Stop 04/27/17 at 08:17; Status DC Sodium Chloride 1,000 ml @ 100 mls/hr Q10H IV ; Start 04/27/17 at 08:34; Stop at 20:33; Status DC Sodium Chloride (NS Flush) 2 ml UNSCH PRN IV FLUSH FLUSH AFTER USING IV ACCESS ; Start 04/27/17 at 08:45 Sodium Chloride (NS Flush) 2 ml BID IV FLUSH Last administered on 04/27/17 21: 24; Start 04/27/17 at 09:00 Acetaminophen (Tylenol) 325 mg Q4H PRN PO PAIN SCALE 1 TO 2; Start 04/27/17 at 08:45 Oxycodone/ Acetaminophen (Percocet 5-325 Mg) 1 tab Q4H PRN PO PAIN SCALE 3 TO 10; Start 04/27/17 at 08:45 Aspirin (Aspirin Chew) 81 mg DAILY PO Last administered on 04/27/17 09:25; Start 04/27/17 at 09:00 Ticagrelor (Brilinta) 90 mg BID PO Last administered on 04/27/17 21:24; Start 04/27/17 at 21:00 Bivalirudin 250 mg/Sodium Chloride 50 ml @ 0 mls/hr Q0M IV ; Start 04/27/17 at 08 :34; Stop 04/27/17 at 12:33; Status DC Miscellaneous Information 1 ONCE ONCE XX ; Start 04/27/17 at 08:45; Stop at 08:46; Status DC Ondansetron HCl (Zofran Inj) 4 mg Q4H PRN IV PUSH NAUSEA; Start 04/27/17 at 08: 45 Bacitracin (Bacitracin Oint Packet) 0.9 gm ONCE ONCE TOP ; Start 04/27/17 at 08: 45; Stop 04/27/17 at 08:46; Status DC Metoprolol Tartrate (Lopressor) 12.5 mg BID PO Last administered on 04/27/17 21 :24; Start 04/27/17 at 09:00 Lisinopril (Prinivil) 5 mg DAILY PO Last administered on 04/27/17 09:24; Start 04/27/17 at 09:00 Atorvastatin Calcium (Lipitor) 40 mg DAILY PO Last administered on 04/27/17 09: 24; Start 04/27/17 at 09:00; Stop 04/27/17 at 09:54; Status DC Potassium Chloride (KCl) 20 meq ONCE ONCE PO Last administered on 04/27/17 09: 24; Start 04/27/17 at 08:45; Stop 04/27/17 at 08:46; Status DC Oxycodone HCl (Roxicodone) 30 mg Q8H PRN PO PAIN 1-10 Last administered on 17:30; Start 04/27/17 at 09:15 Nicotine (Habitrol 21 Mg Patch.24 Hr) 1 patch ONCE ONCE T-DERMAL ; Start at 09:15; Stop 04/27/17 at 09:22; Status DC Nicotine (Habitrol 21 Mg Patch.24 Hr) 1 patch DAILY T-DERMAL ; Start 04/28/17 at 09:00 Miscellaneous Information 1 DAILY T-DERMAL ; Start 04/28/17 at 09:00 Miscellaneous Information 1 HS T-DERMAL ; Start 04/27/17 at 21:00; Status Cancel Atorvastatin Calcium (Lipitor) 40 mg DAILY PO ; Start 04/28/17 at 09:00 Iohexol (OMNIPAQUE 350 INJ (Rehabilitation Tech)) 100 ml STK-MED ONCE OTHER ; Start at 11:06; Stop 04/27/17 at 11:07; Status DC Urinary Catheter: No Vascular Central Line Catheter: No A/P Problem List: (1) Hypertension ICD Code: I10 - Essential (primary) hypertension (2) Tobacco abuse ICD Code: Z72.0 - Tobacco use (3) Hyperlipidemia ICD Code: E78.5 - Hyperlipidemia, unspecified (4) STEMI (ST elevation myocardial infarction) ICD Code: I21.3 - ST elevation (STEMI) myocardial infarction of unspecified site Status: Acute Assessment and Plan Acute ST elevation AL involving the circumflex artery Had drug-eluting stent placed to the left circumflex artery BRILLINTA AND ASPIRINT Tobacco abuse recommend smoking cessation NICODERM Hypertension start medications. Uncontrolled still Hyperlipidemia suspected started on statin GERD ADD PEPCID BID We'll check a TSH free T4 and a hemoglobin A1c as well as a.m. labs monitor throughout the admission thank you NicoDerm patch Pain control A.m. labs Monitor renal functions Problem Qualifiers (1) STEMI (ST elevation myocardial infarction): Qualified Codes: I21.3 - ST elevation (STEMI) myocardial infarction of unspecified site Stephon Jeffers DO Apr 28, 2017 08:53
[2017-04-28] MEDS: NICOTINE 21 MG/24 HR PATCH T-DERMAL SCH (09:00)
[2017-04-28] MEDS: REMOVE OLD PATCH T-DERMAL SCH (09:00)
[2017-04-28] MEDS: METOPROLOL TARTRATE 25 MG TAB PO SCH ×2 (09:32→20:49)
[2017-04-28] MEDS: LISINOPRIL 5 MG TAB PO SCH (09:33)
[2017-04-28] MEDS: ATORVASTATIN 40 MG TAB PO SCH (09:34)
[2017-04-28] MEDS: ASPIRIN 81 MG CHEW TAB PO SCH (09:34)
[2017-04-28] MEDS: SODIUM CHLORIDE 0.9% FLUSH 10 ML FLUSH IV FLUSH SCH ×2 (09:37→20:49)
[2017-04-28] MEDS: FAMOTIDINE 20 MG TAB PO SCH ×2 (09:37→20:48)
[2017-04-28] MEDS: TICAGRELOR 90 MG TAB PO SCH ×2 (09:48→20:48)
--- NOTE | 2017-04-28 10:39 | PD.CARD.PN ---
Subjective Subjective Remarks Pt feeling well, no complaints. Objective Medications Administered Medications Medications (Trade) Dose Ordered Sig/Nellie Route PRN Reason Start Time Stop Time Status Last Admin Dose Admin Sodium Chloride (NS Flush) 2 ml BID IV FLUSH 04/27/17 09:00 04/28/17 09:37 Aspirin (Aspirin Chew) 81 mg DAILY PO 04/27/17 09:00 04/28/17 09:34 Ticagrelor (Brilinta) 90 mg BID PO 04/27/17 21:00 04/28/17 09:48 Metoprolol Tartrate (Lopressor) 12.5 mg BID PO 04/27/17 09:00 04/28/17 09:32 Lisinopril (Prinivil) 5 mg DAILY PO 04/27/17 09:00 04/28/17 09:33 Oxycodone HCl (Roxicodone) 30 mg Q8H PRN PO PAIN 1-10 04/27/17 09:15 04/27/17 17:30 Atorvastatin Calcium (Lipitor) 40 mg DAILY PO 04/28/17 09:00 04/28/17 09:34 Famotidine (Pepcid) 20 mg BID PO 04/28/17 09:00 04/28/17 09:37 Vital Signs / I&O Vital Signs Date Time Temp Pulse Resp B/P (MAP) Pulse Ox O2 Delivery O2 Flow Rate FiO2 04/28/17 07:30 98.4 80 16 117/84 (95) 95 04/28/17 06:16 83 04/28/17 05:51 84 04/28/17 04:55 84 04/28/17 03:33 71 04/28/17 03:10 98.3 81 18 129/81 (97) 95 04/28/17 02:34 78 04/28/17 01:07 74 04/28/17 00:03 62 04/27/17 23:15 82 04/27/17 23:15 98.5 75 20 134/57 (82) 97 04/27/17 22:00 74 04/27/17 21:00 86 04/27/17 20:15 98.6 62 18 132/66 (88) 98 04/27/17 20:00 76 04/27/17 19:00 87 04/27/17 16:01 74 04/27/17 15:30 98.2 77 18 124/83 (97) 98 04/27/17 15:00 73 04/27/17 14:00 70 04/27/17 13:00 94 04/27/17 12:00 84 04/27/17 11:45 98.1 91 18 133/92 (106) 95 04/27/17 11:00 97 I/O 04/27/17 04/27/17 04/27/17 04/28/17 04/28/17 04/28/17 07:00 15:00 23:00 07:00 15:00 23:00 Intake Total 480 ml 460 ml Output Total 2050 ml Balance -1570 ml 460 ml Intake Oral 480 ml 460 ml Output Urine Total 2050 ml # Voids 4 2 # Bowel Movements 0 Physical Exam GENERAL: This is a well-nourished, well-developed patient, in no apparent distress. CARDIOVASCULAR: Regular rate and rhythm without murmurs, gallops, or rubs. RESPIRATORY: Clear to auscultation. Breath sounds equal bilaterally. No wheezes , rales, or rhonchi. GASTROINTESTINAL: Abdomen soft, non-tender, nondistended. Normal active bowel sounds MUSCULOSKELETAL: Extremities without clubbing, cyanosis, or edema. NEURO: Alert & Oriented x4 to person, place, time, situation. Moves all ext x4 Laboratory Laboratory Tests Test 04/28/17 05:13 White Blood Count 6.7 TH/MM3 Red Blood Count 4.73 MIL/MM3 Hemoglobin 14.8 GM/DL Hematocrit 43.5 % Mean Corpuscular Volume 92.1 FL Mean Corpuscular Hemoglobin 31.3 PG Mean Corpuscular Hemoglobin Concent 34.0 % Red Cell Distribution Width 14.7 % Platelet Count 184 TH/MM3 Mean Platelet Volume 9.1 FL Neutrophils (%) (Auto) 68.3 % Lymphocytes (%) (Auto) 18.9 % Monocytes (%) (Auto) 7.6 % Eosinophils (%) (Auto) 2.5 % Basophils (%) (Auto) 2.7 % Neutrophils # (Auto) 4.6 TH/MM3 Lymphocytes # (Auto) 1.3 TH/MM3 Monocytes # (Auto) 0.5 TH/MM3 Eosinophils # (Auto) 0.2 TH/MM3 Basophils # (Auto) 0.2 TH/MM3 CBC Comment DIFF FINAL Differential Comment Blood Urea Nitrogen 8 MG/DL Creatinine 0.74 MG/DL Random Glucose 91 MG/DL Total Protein 7.4 GM/DL Albumin 3.6 GM/DL Calcium Level 8.7 MG/DL Phosphorus Level 3.1 MG/DL Magnesium Level 2.0 MG/DL Alkaline Phosphatase 98 U/L Aspartate Amino Transf (AST/SGOT) 222 U/L Alanine Aminotransferase (ALT/SGPT) 47 U/L Total Bilirubin 0.4 MG/DL Sodium Level 141 MEQ/L Potassium Level 3.6 MEQ/L Chloride Level 106 MEQ/L Carbon Dioxide Level 26.7 MEQ/L Anion Gap 8 MEQ/L Estimat Glomerular Filtration Rate 81 ML/MIN Total Creatine Kinase 1602 U/L Creatine Kinase MB 94.4 NG/ML Creatine Kinase MB % 5.9 % Triglycerides Level 94 MG/DL Cholesterol Level 164 MG/DL LDL Cholesterol 95 MG/DL HDL Cholesterol 50.6 MG/DL Cholesterol/HDL Ratio 3.24 RATIO Free Thyroxine 1.09 NG/DL Thyroid Stimulating Hormone 3rd Gen 0.837 uIU/ML Imaging Last Impressions Chest X-Ray 04/27/17 0655 Signed Impressions: Service Date/Time: Thursday, April 27, 2017 07:05 - CONCLUSION: No acute disease. Stephon Hansen MD FACR Assessment and Plan Problem List: (1) STEMI (ST elevation myocardial infarction) ICD Codes: I21.3 - ST elevation (STEMI) myocardial infarction of unspecified site Status: Acute Plan: s/p PCI, continue med mgt. (2) Tobacco abuse ICD Codes: Z72.0 - Tobacco use Plan: counseled at length Assessment and Plan doing great; she can go home in the AM if no symptoms on current meds. Problem Qualifiers (1) STEMI (ST elevation myocardial infarction): Qualified Codes: I21.3 - ST elevation (STEMI) myocardial infarction of unspecified site Keshawn Davis MD Apr 28, 2017 10:39
--- NOTE | 2017-04-28 13:46 | EKG ---
Date Performed: 04/27/2017 Time Performed: 10:24:10 PTAGE: 57 years EKG: Sinus rhythm . Inferior T wave changes are nonspecific Borderline ECG PREVIOUS TRACING : 04/27/2017 06.48 Since prior tracing, previously seen inferior ST elevations with precordial reciprocal changes have resolved. Nonspecific changes remain. DOCTOR: Keshawn Davis Interpretating Date/Time 04/28/2017 13:45:41
--- NOTE | 2017-04-28 13:49 | EKG ---
Date Performed: 04/28/2017 Time Performed: 06:06:38 PTAGE: 57 years EKG: Sinus rhythm Prolonged QT interval Extensive ST-T changes may be due to myocardial ischemia Abnormal ECG PREVIOUS TRACING : 04/27/2017 10.24 Since prior tracing, QT interval is longer and extensive T- wave changes are new, consider ischemia. DOCTOR: Keshawn Davis Interpretating Date/Time 04/28/2017 13:48:21
[2017-04-28 14:41] LABS: CKMB 50.4 NG/ML (0.5-3.6)
[2017-04-28 14:53] LABS: HEMOGLOBIN A1b 1.7 %; HEMOGLOBIN Ao 84.6 %; HEMOGLOBIN LA1C 2.1 %
[2017-04-28 20:24] LABS: CKMB 24.1 NG/ML (0.5-3.6)
[2017-04-29] VITALS (13 sets, daily range): BP systolic 104–125; BP diastolic 79–91; PULSE 63–88; RESP 16; TEMP 97.8–98.4; O2SAT 95–97
--- NOTE | 2017-04-29 07:09 | PD.CARD.PN ---
Subjective Subjective Remarks Pt feels well, wants to go home. No complaints, but will need meds. Objective Medications Administered Medications Medications (Trade) Dose Ordered Sig/Nellie Route PRN Reason Start Time Stop Time Status Last Admin Dose Admin Sodium Chloride (NS Flush) 2 ml BID IV FLUSH 04/27/17 09:00 04/28/17 20:49 Aspirin (Aspirin Chew) 81 mg DAILY PO 04/27/17 09:00 04/28/17 09:34 Ticagrelor (Brilinta) 90 mg BID PO 04/27/17 21:00 04/28/17 20:48 Metoprolol Tartrate (Lopressor) 12.5 mg BID PO 04/27/17 09:00 04/28/17 20:49 Lisinopril (Prinivil) 5 mg DAILY PO 04/27/17 09:00 04/28/17 09:33 Oxycodone HCl (Roxicodone) 30 mg Q8H PRN PO PAIN 1-10 04/27/17 09:15 04/27/17 17:30 Atorvastatin Calcium (Lipitor) 40 mg DAILY PO 04/28/17 09:00 04/28/17 09:34 Famotidine (Pepcid) 20 mg BID PO 04/28/17 09:00 04/28/17 20:48 Vital Signs / I&O Vital Signs Date Time Temp Pulse Resp B/P (MAP) Pulse Ox O2 Delivery O2 Flow Rate FiO2 04/29/17 06:13 71 04/29/17 05:21 75 04/29/17 04:00 68 04/29/17 03:20 97.8 88 16 104/79 (87) 97 04/29/17 03:03 65 04/29/17 02:18 72 04/29/17 01:20 76 04/29/17 00:17 75 04/28/17 23:04 98.3 75 16 97/63 (74) 96 04/28/17 23:04 76 04/28/17 22:01 92 04/28/17 21:10 88 04/28/17 20:00 76 04/28/17 20:00 98.5 78 16 138/89 (105) 95 04/28/17 18:12 96 04/28/17 17:09 72 04/28/17 16:47 80 04/28/17 15:38 98.8 72 16 118/81 (93) 97 04/28/17 15:27 80 04/28/17 14:01 73 04/28/17 13:43 70 04/28/17 12:16 75 04/28/17 11:50 97.0 89 16 123/72 (89) 97 04/28/17 11:00 82 04/28/17 10:00 82 04/28/17 09:00 80 04/28/17 08:00 80 04/28/17 07:30 98.4 80 16 117/84 (95) 95 04/28/17 07:30 93 I/O 04/28/17 04/28/17 04/28/17 04/29/17 04/29/17 04/29/17 06:59 14:59 22:59 06:59 14:59 22:59 Intake Total 460 ml 480 ml 480 ml Balance 460 ml 480 ml 480 ml Intake Oral 460 ml 480 ml 480 ml # Voids 2 3 3 Physical Exam GENERAL: This is a well-nourished, well-developed patient, in no apparent distress. CARDIOVASCULAR: Regular rate and rhythm without murmurs, gallops, or rubs. RESPIRATORY: Clear to auscultation. Breath sounds equal bilaterally. No wheezes , rales, or rhonchi. GASTROINTESTINAL: Abdomen soft, non-tender, nondistended. Normal active bowel sounds MUSCULOSKELETAL: Extremities without clubbing, cyanosis, or edema. NEURO: Alert & Oriented x4 to person, place, time, situation. Moves all ext x4 Laboratory Laboratory Tests Test 04/28/17 12:56 04/28/17 19:11 Total Creatine Kinase 1335 U/L 963 U/L Creatine Kinase MB 50.4 NG/ML 24.1 NG/ML Creatine Kinase MB % 3.8 % 2.5 % Troponin I 34.00 NG/ML 25.40 NG/ML Imaging Last Impressions Chest X-Ray 04/27/17 0655 Signed Impressions: Service Date/Time: Thursday, April 27, 2017 07:05 - CONCLUSION: No acute disease. Stephon Hansen MD FACR Assessment and Plan Problem List: (1) STEMI (ST elevation myocardial infarction) ICD Codes: I21.3 - ST elevation (STEMI) myocardial infarction of unspecified site Status: Acute Plan: s/p PCI, continue med mgt; asked patient case manager to help w/ meds. (2) Tobacco abuse ICD Codes: Z72.0 - Tobacco use Assessment and Plan doing great; she can go home and f/u with Dr. Ramirez Problem Qualifiers (1) STEMI (ST elevation myocardial infarction): Qualified Codes: I21.3 - ST elevation (STEMI) myocardial infarction of unspecified site Keshawn Davis MD Apr 29, 2017 07:09
[2017-04-29] MEDS: NICOTINE 21 MG/24 HR PATCH T-DERMAL SCH (07:50)
[2017-04-29] MEDS: REMOVE OLD PATCH T-DERMAL SCH (07:51)
[2017-04-29 08:22] LABS: AUTOMATED NEUTROPHIL # 4.5 TH/MM3 (1.8-7.7); BASOPHIL % 0.6 % (0.0-2.0); EOSINOPHIL # 0.2 TH/MM3 (0-0.4); EOSINOPHIL % 2.4 % (0.0-4.0); HEMATOCRIT 44.2 % (35.0-46.0); HEMO FLAGS DIFF FINAL; LYMPH % 24.3 % (9.0-44.0); LYMPHOCYTE # 1.7 TH/MM3 (1.0-4.8); MEAN CELL VOLUME 92.5 FL (80.0-100.0); MEAN CORPUSCULAR HEMOGLOBIN 31.4 PG (27.0-34.0); MEAN CORPUSCULAR HGB CONC 33.9 % (32.0-36.0); MONO % 7.5 % (0.0-8.0); NEUT % 65.2 % (16.0-70.0); PLATELET COUNT 188 TH/MM3 (150-450); RED BLOOD COUNT 4.78 MIL/MM3 (4.00-5.30); RED CELL DISTRIBUTION WIDTH 14.8 % (11.6-17.2); WHITE BLOOD COUNT 6.9 TH/MM3 (4.0-11.0)
[2017-04-29 08:52] LABS: MAGNESIUM 2.4 MG/DL (1.5-2.5)
[2017-04-29] MEDS: SODIUM CHLORIDE 0.9% FLUSH 10 ML FLUSH IV FLUSH SCH (09:00)
--- NOTE | 2017-04-29 09:01 | HHI.PR ---
Subjective Remarks Patient is a 57-year-old female. Initially presented with BY EVAC with 10 out of 10 chest pain that woke her from sleep 30 minutes prior to arrival in emergency department. Patient was brought in as STEMI alert. Patient went directly to the [facility]. Had stents placed to left circumflex drug-eluting She has history of hypertension and tobacco abuse Family history is positive for MIs and coronary artery disease She had pain And 10 the Mid Chest Radiating into Her Back 8-9 COMPLAINS OF SOME SORE THROAT, NO NAUSEA, NO VOMITING AND SOME GERD PPI DW PATIENT AND RN NOT CLEARED BY CARDIO YET 8-10 CLEARED BY CARDIO WANTS TO GO HOME DW RN AND PT Objective Vitals Vital Signs Date Time Temp Pulse Resp B/P (MAP) Pulse Ox O2 Delivery O2 Flow Rate FiO2 04/29/17 08:37 73 04/29/17 07:23 98.4 76 16 125/91 (102) 96 04/29/17 07:23 63 04/29/17 06:13 71 04/29/17 05:21 75 04/29/17 04:00 68 04/29/17 03:20 97.8 88 16 104/79 (87) 97 04/29/17 03:03 65 04/29/17 02:18 72 04/29/17 01:20 76 04/29/17 00:17 75 04/28/17 23:04 98.3 75 16 97/63 (74) 96 04/28/17 23:04 76 04/28/17 22:01 92 04/28/17 21:10 88 04/28/17 20:00 76 04/28/17 20:00 98.5 78 16 138/89 (105) 95 04/28/17 18:12 96 04/28/17 17:09 72 04/28/17 16:47 80 04/28/17 15:38 98.8 72 16 118/81 (93) 97 04/28/17 15:27 80 04/28/17 14:01 73 04/28/17 13:43 70 04/28/17 12:16 75 04/28/17 11:50 97.0 89 16 123/72 (89) 97 04/28/17 11:00 82 04/28/17 10:00 82 04/28/17 09:00 80 I/O 9/9/04/28/17 04/28/17 04/29/17 04/29/17 04/29/17 07:00 15:00 23:00 07:00 15:00 23:00 Intake Total 460 ml 480 ml 480 ml Balance 460 ml 480 ml 480 ml Intake Oral 460 ml 480 ml 480 ml # Voids 2 3 3 Result Diagram: 04/29/17 0550 04/28/17 0513 Other Results Laboratory Tests Test 04/27/17 06:57 04/28/17 05:13 04/28/17 12:56 04/28/17 19:11 White Blood Count 6.6 TH/MM3 6.7 TH/MM3 Red Blood Count 4.26 MIL/MM3 4.73 MIL/MM3 Hemoglobin 13.6 GM/DL 14.8 GM/DL Bedside Hemoglobin 12.9 G/DL Hematocrit 39.3 % 43.5 % Bedside Hematocrit 38.0 % Mean Corpuscular Volume 92.2 FL 92.1 FL Mean Corpuscular Hemoglobin 31.9 PG 31.3 PG Mean Corpuscular Hemoglobin Concent 34.6 % 34.0 % Red Cell Distribution Width 14.6 % 14.7 % Platelet Count 166 TH/MM3 184 TH/MM3 Mean Platelet Volume 8.9 FL 9.1 FL Neutrophils (%) (Auto) 45.7 % 68.3 % Lymphocytes (%) (Auto) 34.7 % 18.9 % Monocytes (%) (Auto) 10.2 % 7.6 % Eosinophils (%) (Auto) 8.2 % 2.5 % Basophils (%) (Auto) 1.2 % 2.7 % Neutrophils # (Auto) 3.0 TH/MM3 4.6 TH/MM3 Lymphocytes # (Auto) 2.3 TH/MM3 1.3 TH/MM3 Monocytes # (Auto) 0.7 TH/MM3 0.5 TH/MM3 Eosinophils # (Auto) 0.5 TH/MM3 0.2 TH/MM3 Basophils # (Auto) 0.1 TH/MM3 0.2 TH/MM3 CBC Comment DIFF FINAL DIFF FINAL Differential Comment Prothrombin Time 11.3 SEC Prothromb Time International Ratio 1.0 RATIO Activated Partial Thromboplast Time 24.6 SEC Bedside Sodium 143 MMOL/L Bedside Potassium 3.3 MMOL/L Bedside Chloride 106 MMOL/L Bedside Blood Urea Nitrogen 12 MG/DL Bedside Creatinine 0.7 MG/DL Bedside Glucose 124 MG/DL Calcium Level 8.4 MG/DL 8.7 MG/DL Magnesium Level 2.2 MG/DL 2.0 MG/DL Total Creatine Kinase 111 U/L 1602 U/L 1335 U/L 963 U/L Creatine Kinase MB 1.6 NG/ML 94.4 NG/ML 50.4 NG/ML 24.1 NG/ML Troponin I LESS THAN 0.02 NG/ML 34.00 NG/ML 25.40 NG/ML B-Type Natriuretic Peptide 17 PG/ML Blood Urea Nitrogen 8 MG/DL Creatinine 0.74 MG/DL Random Glucose 91 MG/DL Total Protein 7.4 GM/DL Albumin 3.6 GM/DL Phosphorus Level 3.1 MG/DL Alkaline Phosphatase 98 U/L Aspartate Amino Transf (AST/SGOT) 222 U/L Alanine Aminotransferase (ALT/SGPT) 47 U/L Total Bilirubin 0.4 MG/DL Sodium Level 141 MEQ/L Potassium Level 3.6 MEQ/L Chloride Level 106 MEQ/L Carbon Dioxide Level 26.7 MEQ/L Anion Gap 8 MEQ/L Estimat Glomerular Filtration Rate 81 ML/MIN Hemoglobin A1c 6.0 % Creatine Kinase MB % 5.9 % 3.8 % 2.5 % Triglycerides Level 94 MG/DL Cholesterol Level 164 MG/DL LDL Cholesterol 95 MG/DL HDL Cholesterol 50.6 MG/DL Cholesterol/HDL Ratio 3.24 RATIO Free Thyroxine 1.09 NG/DL Thyroid Stimulating Hormone 3rd Gen 0.837 uIU/ML Test 04/29/17 05:50 White Blood Count 6.9 TH/MM3 Red Blood Count 4.78 MIL/MM3 Hemoglobin 15.0 GM/DL Hematocrit 44.2 % Mean Corpuscular Volume 92.5 FL Mean Corpuscular Hemoglobin 31.4 PG Mean Corpuscular Hemoglobin Concent 33.9 % Red Cell Distribution Width 14.8 % Platelet Count 188 TH/MM3 Mean Platelet Volume 9.3 FL Neutrophils (%) (Auto) 65.2 % Lymphocytes (%) (Auto) 24.3 % Monocytes (%) (Auto) 7.5 % Eosinophils (%) (Auto) 2.4 % Basophils (%) (Auto) 0.6 % Neutrophils # (Auto) 4.5 TH/MM3 Lymphocytes # (Auto) 1.7 TH/MM3 Monocytes # (Auto) 0.5 TH/MM3 Eosinophils # (Auto) 0.2 TH/MM3 Basophils # (Auto) 0.0 TH/MM3 CBC Comment DIFF FINAL Differential Comment Imaging Last Impressions Chest X-Ray 04/27/17 0655 Signed Impressions: Service Date/Time: Thursday, April 27, 2017 07:05 - CONCLUSION: No acute disease. Stephon Hansen MD FACR Objective Remarks GENERAL: AWAKE ALERT AND ORIENTED x3 SKIN: Warm and dry.NO RASHES HEAD: Atraumatic. Normocephalic. EYES: Pupils equal and round. No scleral icterus. No injection or drainage. EOMI ENT: No nasal bleeding or discharge. Mucous membranes pink and moist.TONGUE MIDLINE NECK: Trachea midline. No JVD. SUPPLE CARDIOVASCULAR: Regular rate and rhythm. S1, S2 NO S3 OR S4 NO HEAVE OR THRILL RESPIRATORY: No accessory muscle use. Clear to auscultation. Breath sounds equal bilaterally. GASTROINTESTINAL: Abdomen soft, non-tender, nondistended. Hepatic and splenic margins not palpable. MUSCULOSKELETAL: Extremities without clubbing, cyanosis, or edema. No obvious deformities. NEUROLOGICAL: Awake and alert. No obvious cranial nerve deficits. Motor grossly within normal limits. Five out of 5 muscle strength in the arms and legs. Normal speech. PSYCHIATRIC: Appropriate mood and affect; insight and judgment normal. Procedures JOSE LEROY M.D. DATE 04/27/2017 PROCEDURE PERFORMED Left heart catheterization, left ventriculography, coronary angiography, intravascular ultrasound, balloon angioplasty and stenting of the major obtuse marginal branch of circumflex coronary artery. RESULTS OF STENTING Following stenting of the major obtuse marginal branch, the total occlusion has been reduced to 0% without evidence of thrombus or dissection. There is about a 20% stenosis distal to where I stented that did not need stenting. There is SONAL-III flow at the end of the procedure. Looking carefully at the stent, it probably does senior care the distal circumflex vessel, but that vessel is very small CONCLUSIONS 1. Mild to moderately impaired LV function. 2. Elevated left ventricular end-diastolic pressure. 3. Three-vessel coronary artery disease which is mild in the right coronary artery, moderate in the LAD and severe in the circumflex vessel occlusion of the obtuse marginal branch. 4. Successful stenting of the obtuse marginal branch using a drug-eluting stent. RECOMMENDATIONS Aspirin and Brilinta and at use K[place]ST[place] inhibitor, beta angélica as hemodynamics permit. Check lipid values and start statin therapy. Anticipated hospital stay is two days. Medications and IVs Current Medications Sodium Chloride 1,000 ml @ 0 mls/hr Q0M ONCE IV ; Start 04/27/17 at 06:55; Stop 04/27/17 at 06:58; Status DC Sodium Chloride (NS Flush) 2 ml UNSCH PRN IVF FLUSH AFTER USING IV ACCESS; Start 04/27/17 at 07:00; Stop 04/27/17 at 08:40; Status DC Aspirin (Aspirin Chew) 324 mg NOW STAT PO ; Start 04/27/17 at 06:55; Stop at 06:58; Status DC Nitroglycerin (Nitrostat Sl) 0.4 mg NOW STAT SL ; Start 04/27/17 at 06:55; Stop 04/27/17 at 06:58; Status DC Nitroglycerin/ Dextrose 250 ml @ 3 mls/hr TITRATE PRN IV for angina or ST elevation; Start 04/27/17 at 07:00 Heparin Sodium (Porcine) (Heparin Inj) 4,000 units NOW STAT IV ; Start 04/27/17 at 06:55; Stop 04/27/17 at 06:58; Status DC Heparin Sodium/ Sodium Chloride 1,000 ml @ As Directed STK-MED ONCE .ROUTE ; Start 04/27/17 at 06:58; Stop 04/27/17 at 06:59; Status DC Heparin Sodium/ Sodium Chloride 500 ml @ As Directed STK-MED ONCE .ROUTE Last administered on 04/27/17 07:20; Start 04/27/17 at 07:20; Stop 04/27/17 at 07:21; Status DC Midazolam HCl (Versed Inj) 2 mg STK-MED ONCE .ROUTE ; Start 04/27/17 at 07:21; Stop 04/27/17 at 07:22; Status DC Fentanyl Citrate (fentaNYL INJ) 100 mcg STK-MED ONCE .ROUTE ; Start 04/27/17 at 07:21; Stop 04/27/17 at 07:22; Status DC Heparin Sodium (Porcine) (Heparin Inj) 10,000 units STK-MED ONCE .ROUTE ; Start 04/27/17 at 07:23; Stop 04/27/17 at 07:24; Status DC Morphine Sulfate (Morphine Inj) 8 mg STK-MED ONCE .ROUTE Last administered on 07:27; Start 04/27/17 at 07:25; Stop 04/27/17 at 07:26; Status DC Bivalirudin (Angiomax Inj) 250 mg STK-MED ONCE .ROUTE Last administered on 07:29; Start 04/27/17 at 07:26; Stop 04/27/17 at 07:27; Status DC Sterile Water (Sterile Water For Injection) 10 ml STK-MED ONCE .ROUTE Last administered on 04/27/17 07:30; Start 04/27/17 at 07:26; Stop 04/27/17 at 07:27; Status DC Nitroglycerin/ Dextrose 250 ml @ As Directed STK-MED ONCE .ROUTE Last administered on 04/27/17 07:29; Start 04/27/17 at 07:29; Stop 04/27/17 at 07:30; Status DC Ticagrelor (Brilinta) 180 mg STK-MED ONCE PO Last administered on 04/27/17 08: 15; Start 04/27/17 at 08:16; Stop 04/27/17 at 08:17; Status DC Sodium Chloride 1,000 ml @ 100 mls/hr Q10H IV ; Start 04/27/17 at 08:34; Stop at 20:33; Status DC Sodium Chloride (NS Flush) 2 ml UNSCH PRN IV FLUSH FLUSH AFTER USING IV ACCESS ; Start 04/27/17 at 08:45 Sodium Chloride (NS Flush) 2 ml BID IV FLUSH Last administered on 04/28/17 20: 49; Start 04/27/17 at 09:00 Acetaminophen (Tylenol) 325 mg Q4H PRN PO PAIN SCALE 1 TO 2; Start 04/27/17 at 08:45 Oxycodone/ Acetaminophen (Percocet 5-325 Mg) 1 tab Q4H PRN PO PAIN SCALE 3 TO 10; Start 04/27/17 at 08:45 Aspirin (Aspirin Chew) 81 mg DAILY PO Last administered on 04/28/17 09:34; Start 04/27/17 at 09:00 Ticagrelor (Brilinta) 90 mg BID PO Last administered on 04/28/17 20:48; Start 04/27/17 at 21:00 Bivalirudin 250 mg/Sodium Chloride 50 ml @ 0 mls/hr Q0M IV ; Start 04/27/17 at 08 :34; Stop 04/27/17 at 12:33; Status DC Miscellaneous Information 1 ONCE ONCE XX Last administered on 04/27/17 08:45; Start 04/27/17 at 08:45; Stop 04/27/17 at 08:46; Status DC Ondansetron HCl (Zofran Inj) 4 mg Q4H PRN IV PUSH NAUSEA; Start 04/27/17 at 08: 45 Bacitracin (Bacitracin Oint Packet) 0.9 gm ONCE ONCE TOP ; Start 04/27/17 at 08: 45; Stop 04/27/17 at 08:46; Status DC Metoprolol Tartrate (Lopressor) 12.5 mg BID PO Last administered on 04/28/17 20 :49; Start 04/27/17 at 09:00 Lisinopril (Prinivil) 5 mg DAILY PO Last administered on 04/28/17 09:33; Start 04/27/17 at 09:00 Atorvastatin Calcium (Lipitor) 40 mg DAILY PO Last administered on 04/27/17 09: 24; Start 04/27/17 at 09:00; Stop 04/27/17 at 09:54; Status DC Potassium Chloride (KCl) 20 meq ONCE ONCE PO Last administered on 04/27/17 09: 24; Start 04/27/17 at 08:45; Stop 04/27/17 at 08:46; Status DC Oxycodone HCl (Roxicodone) 30 mg Q8H PRN PO PAIN 1-10 Last administered on 17:30; Start 04/27/17 at 09:15 Nicotine (Habitrol 21 Mg Patch.24 Hr) 1 patch ONCE ONCE T-DERMAL ; Start at 09:15; Stop 04/27/17 at 09:22; Status DC Nicotine (Habitrol 21 Mg Patch.24 Hr) 1 patch DAILY T-DERMAL ; Start 04/28/17 at 09:00 Miscellaneous Information 1 DAILY T-DERMAL ; Start 04/28/17 at 09:00 Miscellaneous Information 1 HS T-DERMAL ; Start 04/27/17 at 21:00; Status Cancel Atorvastatin Calcium (Lipitor) 40 mg DAILY PO Last administered on 04/28/17 09: 34; Start 04/28/17 at 09:00 Iohexol (OMNIPAQUE 350 INJ ([facility] [facility])) 100 ml STK-MED ONCE OTHER ; Start at 11:06; Stop 04/27/17 at 11:07; Status DC Famotidine (Pepcid) 20 mg BID PO Last administered on 04/28/17 20:48; Start 04/28/17 at 09:00 Urinary Catheter: No Vascular Central Line Catheter: No A/P Problem List: (1) Hypertension ICD Code: I10 - Essential (primary) hypertension (2) Tobacco abuse ICD Code: Z72.0 - Tobacco use (3) Hyperlipidemia ICD Code: E78.5 - Hyperlipidemia, unspecified (4) STEMI (ST elevation myocardial infarction) ICD Code: I21.3 - ST elevation (STEMI) myocardial infarction of unspecified site Status: Acute Assessment and Plan Acute ST elevation OK involving the circumflex artery Had drug-eluting stent placed to the left circumflex artery BRILLINTA AND ASPIRINT Tobacco abuse recommend smoking cessation NICODERM Hypertension start medications. Uncontrolled still Hyperlipidemia suspected started on statin GERD ADD PEPCID BID We'll check a TSH free T4 and a hemoglobin A1c as well as a.m. labs monitor throughout the admission thank you NicoDerm patch Pain control DC TO HOME TODAY Problem Qualifiers (1) STEMI (ST elevation myocardial infarction): Qualified Codes: I21.3 - ST elevation (STEMI) myocardial infarction of unspecified site Stephon Jeffers DO Apr 29, 2017 09:01
[2017-04-29] MEDS ORDERED: ATOR40TA16 PO (09:06)
[2017-04-29] MEDS ORDERED: FAMO20TA2 PO (09:06)
[2017-04-29] MEDS ORDERED: ASPI81CH25 PO (09:06)
[2017-04-29] MEDS ORDERED: METO25TA3 PO (09:06)
[2017-04-29] MEDS ORDERED: OXYC30TA PO (09:06)
[2017-04-29] MEDS ORDERED: BRIL90TA PO (09:06)
[2017-04-29] MEDS ORDERED: NICO21DI25 T-DERMAL (09:06)
[2017-04-29] MEDS ORDERED: LISI-519 PO (09:06)
[2017-04-29] MEDS: ASPIRIN 81 MG CHEW TAB PO SCH (09:08)
[2017-04-29] MEDS: TICAGRELOR 90 MG TAB PO SCH (09:08)
[2017-04-29] MEDS: LISINOPRIL 5 MG TAB PO SCH (09:08)
[2017-04-29] MEDS: ATORVASTATIN 40 MG TAB PO SCH (09:09)
[2017-04-29] MEDS: METOPROLOL TARTRATE 25 MG TAB PO SCH (09:09)
[2017-04-29] MEDS: FAMOTIDINE 20 MG TAB PO SCH (09:09)
--- NOTE | 2017-04-29 09:10 | HHI.DS ---
Discharge Summary Admission Date Apr 27, 2017 at 07:39 Discharge Date: Apr 29, 2017 Admitting Diagnosis STEMI (1) Hypertension ICD Code: I10 - Essential (primary) hypertension Diagnosis: Secondary (2) Tobacco abuse ICD Code: Z72.0 - Tobacco use Diagnosis: Secondary (3) Hyperlipidemia ICD Code: E78.5 - Hyperlipidemia, unspecified Diagnosis: Secondary (4) STEMI (ST elevation myocardial infarction) ICD Code: I21.3 - ST elevation (STEMI) myocardial infarction of unspecified site Diagnosis: Principal Status: Acute Procedures JOSE LEROY M.D. DATE 04/27/2017 PROCEDURE PERFORMED Left heart catheterization, left ventriculography, coronary angiography, intravascular ultrasound, balloon angioplasty and stenting of the major obtuse marginal branch of circumflex coronary artery. RESULTS OF STENTING Following stenting of the major obtuse marginal branch, the total occlusion has been reduced to 0% without evidence of thrombus or dissection. There is about a 20% stenosis distal to where I stented that did not need stenting. There is SONAL-III flow at the end of the procedure. Looking carefully at the stent, it probably does residential the distal circumflex vessel, but that vessel is very small CONCLUSIONS 1. Mild to moderately impaired LV function. 2. Elevated left ventricular end-diastolic pressure. 3. Three-vessel coronary artery disease which is mild in the right coronary artery, moderate in the LAD and severe in the circumflex vessel occlusion of the obtuse marginal branch. 4. Successful stenting of the obtuse marginal branch using a drug-eluting stent. RECOMMENDATIONS Aspirin and Brilinta and at use [place] inhibitor, beta angélica as hemodynamics permit. Check lipid values and start statin therapy. Anticipated hospital stay is two days. Brief History - From Admission Patient is a 57-year-old female. Initially presented with BY EVAC with 10 out of 10 chest pain that woke her from sleep 30 minutes prior to arrival in emergency department. Patient was brought in as STEMI alert. Patient went directly to the [facility]. Had stents placed to left circumflex drug-eluting She has history of hypertension and tobacco abuse Family history is positive for MIs and coronary artery disease She had pain And 10 the Mid Chest Radiating into Her Back CBC/BMP: 9/10/17 0550 04/28/17 0513 Significant Findings Laboratory Tests Test 04/27/17 06:57 04/28/17 05:13 04/28/17 12:56 04/28/17 19:11 Monocytes (%) (Auto) 10.2 % (0.0-8.0) Eosinophils (%) (Auto) 8.2 % (0.0-4.0) Eosinophils # (Auto) 0.5 TH/MM3 (0-0.4) Bedside Potassium 3.3 MMOL/L (3.5-4.9) Bedside Glucose 124 MG/DL (60-95) Calcium Level 8.4 MG/DL (8.5-10.1) Troponin I LESS THAN 0.02 NG/ML 34.00 NG/ML (0.02-0.05) 25.40 NG/ML (0.02-0.05) Basophils (%) (Auto) 2.7 % (0.0-2.0) Aspartate Amino Transf (AST/SGOT) 222 U/L (15-37) Estimat Glomerular Filtration Rate 81 ML/MIN (>89) Total Creatine Kinase 1602 U/L (26-192) 1335 U/L (26-192) 963 U/L (26-192) Creatine Kinase MB 94.4 NG/ML (0.5-3.6) 50.4 NG/ML (0.5-3.6) 24.1 NG/ML (0.5-3.6) Creatine Kinase MB % 5.9 % (0.0-4.0) Test 04/29/17 05:50 Imaging Last Impressions Chest X-Ray 04/27/17 0655 Signed Impressions: Service Date/Time: Thursday, April 27, 2017 07:05 - CONCLUSION: No acute disease. Stephon Hansen MD FACR PE at Discharge GENERAL: AWAKE ALERT AND ORIENTED x3 SKIN: Warm and dry.NO RASHES HEAD: Atraumatic. Normocephalic. EYES: Pupils equal and round. No scleral icterus. No injection or drainage. EOMI ENT: No nasal bleeding or discharge. Mucous membranes pink and moist.TONGUE MIDLINE NECK: Trachea midline. No JVD. SUPPLE CARDIOVASCULAR: Regular rate and rhythm. S1, S2 NO S3 OR S4 NO HEAVE OR THRILL RESPIRATORY: No accessory muscle use. Clear to auscultation. Breath sounds equal bilaterally. GASTROINTESTINAL: Abdomen soft, non-tender, nondistended. Hepatic and splenic margins not palpable. MUSCULOSKELETAL: Extremities without clubbing, cyanosis, or edema. No obvious deformities. NEUROLOGICAL: Awake and alert. No obvious cranial nerve deficits. Motor grossly within normal limits. Five out of 5 muscle strength in the arms and legs. Normal speech. PSYCHIATRIC: Appropriate mood and affect; insight and judgment normal. Hospital Course Patient is a 57-year-old female. Initially presented with BY EVAC with 10 out of 10 chest pain that woke her from sleep 30 minutes prior to arrival in emergency department. Patient was brought in as STEMI alert. Patient went directly to the [facility]. Had stents placed to left circumflex drug-eluting She has history of hypertension and tobacco abuse Family history is positive for MIs and coronary artery disease She had pain And 10 the Mid Chest Radiating into Her Back 8-9 COMPLAINS OF SOME SORE THROAT, NO NAUSEA, NO VOMITING AND SOME GERD PPI DW PATIENT AND RN NOT CLEARED BY CARDIO YET 8-10 CLEARED BY CARDIO WANTS TO GO HOME DW RN AND PT Pt Condition on Discharge: Good Discharge Disposition: Discharge Home Discharge Time: <= 30 minutes Discharge Instructions DIET: Follow Instructions for: Heart Healthy Diet Speech Therapy-Diet Recommends: Regular Activities you can perform: Regular-No Restrictions Follow up Referrals: Cardiology - 2 Weeks with Jose Leroy MD PCP Follow-up - 1 Week New Medications: Aspirin (Aspirin Low Strength) 81 Mg Chew 81 MG PO DAILY for Blood Clot Prevention, #30 EA 3 Refills Atorvastatin (Atorvastatin) 40 Mg Tab 40 MG PO DAILY for Cholesterol Management, #30 TAB 3 Refills Famotidine (Famotidine) 20 Mg Tab 20 MG PO BID for Heartburn Management, #60 TAB 3 Refills Lisinopril (Lisinopril) 5 Mg Tab 5 MG PO DAILY for Blood Pressure Management, #30 TAB 3 Refills Metoprolol Tartrate (Metoprolol Tartrate) 25 Mg Tab 12.5 MG PO BID for Blood Pressure Management, #60 TAB 3 Refills Nicotine (Eq Nicotine) 21 Mg/24 Hour Dis 1 PATCH T-DERMAL DAILY for Agitation, #30 PATCH Ticagrelor (Brilinta) 90 Mg Tab 90 MG PO BID for Blood Clot Prevention, #60 TAB 3 Refills Continued Medications: Oxycodone (Oxycodone) 30 Mg Tab 30 MG PO Q8H PRN for PAIN, #30 TAB 0 Refills (This prescription has been renewed ) Stephon Jeffers DO Apr 29, 2017 09:10
== END 2017-04-29 14:48 | disposition home or self-care (01) | DRG 247 ==
LOC: NEPE 06:46 → NEDA 07:39 → HCIN 08:35
PROVIDERS: ADMIT Hospitalist; ATTEND Hospitalist
PROC: 027034Z Dilation of Coronary Artery, One Artery with Drug-eluting Intraluminal Device, Percutaneous Approach (ICD-10-PCS; principal; 2017-04-27)
PROC: 4A023N7 Measurement of Cardiac Sampling and Pressure, Left Heart, Percutaneous Approach (ICD-10-PCS; 2017-04-27)
PROC: B2111ZZ Fluoroscopy of Multiple Coronary Arteries using Low Osmolar Contrast (ICD-10-PCS; 2017-04-27)
PROC: B2151ZZ Fluoroscopy of Left Heart using Low Osmolar Contrast (ICD-10-PCS; 2017-04-27)
PROC: B240ZZ3 Ultrasonography of Single Coronary Artery, Intravascular (ICD-10-PCS; 2017-04-27)
DX: I21.21 ST elevation (STEMI) myocardial infarction involving left circumflex coronary artery (principal); I10 Essential (primary) hypertension; I25.10 Atherosclerotic heart disease of native coronary artery without angina pectoris; E78.5 Hyperlipidemia, unspecified; F17.210 Nicotine dependence, cigarettes, uncomplicated; K21.9 Gastro-esophageal reflux disease without esophagitis; Z82.49 Family history of ischemic heart disease and other diseases of the circulatory system
CPT/HCPCS: 71010; 80053; 80061; 82310; 82435; 82550; 82552; 82565; 82947; 83036; 83735; 83880; 84100; 84132; 84295; 84439; 84443; 84484; 84520; 85025; 85610; 85730; 92941; 92978; 93005; 93458; 96374; 96375; C1725; C1753; C1760; C1769; C1874; C1887; C1893; G0269; J0583; J1644; J2250; J2270; J3010; Q9967

== ENCOUNTER → 2017-09-06 | Outpatient (CLI) | payer OTHER ==
[~2017-09-06] MED LIST changes: +ASPI81CH25 PO; +ATOR40TA16 PO; +BRIL90TA PO; +FAMO20TA2 PO; -LISI-360 PO; +LISI-519 PO; +METO25TA3 PO
[2017-09-06 09:51] LABS: ALBUMIN 3.7 GM/DL (3.4-5.0); AST (GOT) 16 U/L (15-37); BICARBONATE 26.1 MEQ/L (21.0-32.0); BLOOD UREA NITROGEN 14 MG/DL (7-18); CALCIUM 8.8 MG/DL (8.5-10.1); CHLORIDE 111 MEQ/L (98-107); CREATININE 0.69 MG/DL (0.50-1.00); GLOMERULAR FILTRATION RATE 88 ML/MIN (>89); GLUCOSE,FASTING 89 MG/DL (74-99); SODIUM (NA) 143 MEQ/L (136-145)
[2017-09-06 09:57] LABS: ALKALINE PHOSPHATASE 102 U/L (45-117); ALT (GPT) 24 U/L (10-53); CHOLESTEROL 113 MG/DL (120-200); CHOLESTEROL/ HDL RATIO 2.68 RATIO; HDL CHOLESTEROL 42.1 MG/DL (40.0-60.0); LDL CHOLESTEROL 57 MG/DL (0-99); TOTAL BILIRUBIN ADULT 0.2 MG/DL (0.2-1.0); TOTAL PROTEIN 7.2 GM/DL (6.4-8.2); TRIGLYCERIDES 71 MG/DL (42-150)
== END ==
LOC: CLAB 09:08
PROVIDERS: ATTEND Internal Medicine Cardiovascular Disease
DX: E78.5 Hyperlipidemia, unspecified (principal); I10 Essential (primary) hypertension
CPT/HCPCS: 36415; 80053; 80061

== ENCOUNTER → 2017-09-24 | Outpatient (CLI) | payer OTHER ==
[~2017-09-24] MED LIST changes: +AMINOPHYLLINE INJ 250 MG/10 ML VIAL IV ONE; +AMINOPHYLLINE INJ 250 MG/10 ML VIAL ONE; +REGADENOSON INJ 0.4 MG/5 ML SYR ONE
--- NOTE | 2017-09-24 13:34 | ECHRPT ---
Indication: CONCLUSIONS BP: / HR: Rhythm: Sinus Technical Quality: FINDINGS LEFT VENTRICLE The left ventricular systolic function is low normal with an estimated ejection fraction in the rang e of 50- 55%. Normal left ventricular size. Wall thickness is normal. No regional wall motion abnormalities are present. RIGHT VENTRICLE Normal right ventricular size and systolic function. LEFT ATRIUM The left atrial size is normal. RIGHT ATRIUM The right atrial size is normal. ATRIAL SEPTUM Normal atrial septal thickness without atrial level shunting by limited color doppler interrogation. AORTA The aortic root and proximal ascending aorta are normal in size on limited imaging. MITRAL VALVE Mild thickening of the mitral valve leaflets. Trace mitral valve regurgitation. AORTIC VALVE Trileaflet aortic valve. Aortic valve sclerosis is present. TRICUSPID VALVE Structurally normal tricuspid valve. There is trace tricuspid valve regurgitation. The estimated pulmonary arterial pressure is 31 mmHg. PULMONARY VALVE The pulmonary valve is not well visualized. VESSELS The inferior vena cava is normal in size. PERICARDIUM No pericardial effusion. Maverick Wagner MD, FACC (Electronically Signed) Final Date:24 September 2017 13:32
--- NOTE | 2017-09-26 10:02 | RADRPT ---
EXAM DATE/TIME: 09/24/2017 08:36 [facility] COMPARISON: No previous studies available for comparison. INDICATIONS : Angina. Coronary atherosclerosis. DOSE: 30 mCi Tc99m Myoview at stress. 8.5 mCi Tc99m Myoview at rest. 0.4 mg Lexiscan STRESS SYMPTOMS: Dyspnea and headache. MEDICATIONS: 1.) 100 mg Aminophylline IV EJECTION FRACTION: 45% MEDICAL HISTORY : Hypertension. Cardiovascular disease SURGICAL HISTORY : Coronary artery stent. ENCOUNTER: Initial ACUITY: 1 day PAIN SCALE: 3/10 LOCATION: Bilateral chest TECHNIQUE: The patient underwent pharmacologic stress with infusion of prescribed dose. Continuous ECG tracing was monitored during stress. Gated SPECT imaging was performed after stress and conventional SPECT i maging was performed at rest. The examination was performed on a SPECT/CT scanner, both attenuation and non-corrected datasets were reviewed. FINDINGS: There is mild dilatation of the ventricular cavity the ejection fraction of 45%.Moderate gut activity does obscure the inferior wall. Perfusion is better at stress than rest. There is no redistribution to suggest stress-induced ischem ia. Fixed defect anterior septal region towards the base. CONCLUSION: Negative for stress-induced ischemia. Depressed ejection fraction with mild inferior wall hypokinesis. RISK CATEGORY: Low (<1% Annual Mortality Rate) Stephon Hansen MD FACR on September 26, 2017 at 9:58 Board Certified Radiologist. This report was verified electronically.
== END ==
LOC: HRAD 07:37
PROVIDERS: ATTEND Internal Medicine Cardiovascular Disease
DX: E78.5 Hyperlipidemia, unspecified (principal); I21.3 ST elevation (STEMI) myocardial infarction of unspecified site; I25.119 Atherosclerotic heart disease of native coronary artery with unspecified angina pectoris
CPT/HCPCS: 78452; 93306; A9502; J0280; J2785